=== PATIENT | female | born 1950 | race Two or more races ===

== ENCOUNTER 2025-03-01 09:45 | Day surgery (SDC) | payer OTHER, SELFPAY ==
--- NOTE | 2025-02-23 07:00 | EKG_ITS ---
[facility] Test Date: 2025-02-23 Pat Name: KELLE SAM Department: Room: - Gender: Female Generalist: JAMEY : 1950 Requested By: Maurilio Chavez Order Number: [id number] Reading MD: Maurilio Chavez Measurements Intervals [place] Rate: 56 P: 53 MD: 209 QRS: -6 QRSD: 102 T: -19 QT: 423 QTc: 408 Interpretive Statements SINUS BRADYCARDIA ST DEVIATION AND MODERATE T-WAVE ABNORMALITY, CONSIDER LATERAL ISCHEMIA [-0.1+ mV T WAVE IN I/aVL/V5/V6] Compared to ECG 12/05/2018 12:27:03 T-wave abnormality now present Possible ischemia now present Myocardial infarct finding no longer present /store/S0/[id number]/[id number]
[2025-02-23 08:28] VITALS: BMI 35.0
[2025-02-23 10:38] LABS: Basophils % (Auto) 1 % (0-2.5); Eosinophils # (Auto) 0.1 Thou/mm3 (0.0-0.5); Eosinophils % (Auto) 2 % (0-10); Hematocrit 38.9 % (36.0-46.0); Hemoglobin 12.8 g/dL (12.0-16.0); Immature Granulocytes % (Auto) 0 % (0-0); Immature Granulocytes Auto 0.01 Thou/mm3 (0.00-0.00); Lymphocytes # (Auto) 1.7 Thou/mm3 (1.0-4.8); Lymphocytes % (Auto) 41 % (10-50); Mean Corpuscular HGB Conc 32.9 g/dl (31.0-37.0); Mean Corpuscular Hemoglobin 29.4 pg (25.0-35.0); Mean Corpuscular Volume 89 fL (80-100); Monocytes # (Auto) 0.3 Thou/mm3 (0.0-0.8); Monocytes % (Auto) 7 % (0-12); Neutrophils # (Auto) 2.1 Thou/mm3 (1.8-7.7); Neutrophils % (Auto) 50 % (37-80); Nucleated Red Blood Cell % 0 /100 WBC (0); Platelet Count 229 Thou/mm3 (140-440); RDW Standard Deviation 44.5 fL (36.4-46.3); Red Blood Count 4.36 Miln/mm3 (4.00-5.20); White Blood Count 4.3 Thou/mm3 (3.6-11.0)
[2025-02-23 10:45] LABS: Partial Thromboplastin Time 28.8 Seconds (22.0-36.0); Prothrombin Time 10.7 Seconds (9.0-12.2)
[2025-02-23 11:01] LABS: Alanine Aminotransferase 15 U/L (10-49); Albumin, Serum 4.3 gm/dL (3.4-4.8); Albumin/Globulin Ratio 1.5 (1.2-2.2); Alkaline Phosphatase 72 U/L (46-116); Anion Gap 8 (7-16); Aspartate Amino Transferase 25 U/L (0-34); BUN/Creatinine Ratio 21 Ratio (12-20); Bilirubin,Total 0.5 mg/dL (0.3-1.2); Blood Urea Nitrogen 17 mg/dL (9-23); Calcium 9.5 mg/dL (8.3-10.6); Calcium (Corrected) 9.5 mg/dL (8.5-10.1); Carbon Dioxide 28.9 mMol/L (20.0-31.0); Chloride 104 mMol/L (98-107); Creatinine (Component) 0.8 mg/dL (0.6-1.3); Estimated Creatinine Clearance 58.3 mL/min (>60); Globulin 2.8 gm/dL (2.3-3.5); Glucose 107 mg/dL (74-106); Osmolality,Calculated 282 (275-295); Potassium 3.8 mMol/L (3.4-5.1); Sodium 141 mMol/L (136-145); Total Protein 7.1 gm/dL (5.7-8.2); eGFR > 60 See Note
--- NOTE | 2025-02-28 13:55 | SUR.PREOP ---
Cardiac records and history reviewed with Kenyatta.
[2025-03-01] VITALS (8 sets, daily range): BP systolic 107–131; BP diastolic 61–87; PULSE 64–74; RESP 12–18; TEMP 36.6–36.8; O2SAT 95–100; BMI 34.8
--- NOTE | 2025-03-01 14:17 | ESOP_ITS ---
Date of Procedure 03/01/25 Pre Op Diagnosis Symptomatic varicose veins left lower extremity Post Op Diagnosis Same as preop diagnosis Procedure High ligation of the greater saphenous vein left lower extremity Varicose vein excisions left lower extremity through 42 separate incisions Findings Successful flush ligation of the greater saphenous vein onto the saphenofemoral trunk All marked veins were successfully removed are disrupted Procedure Description With the patient standing in the preop area all varicose veins to be removed for marked with a sharpie pen. The patient was brought to the operating room and laryngeal mask anesthesia was established. The left lower extremity sterilely prepped and draped. A timeout was performed. The high ligation was performed first by using ultrasound to localize the saphenofemoral junction and making a transverse incision in the groin dissecting through the subcutaneous tissues with blunt and sharp dissection then used electrocautery. The saphenofemoral junction was identified and all branches were ligated with hemoclips and then the vein was ligated down to the saphenofemoral junction with a 0 silk tie and was ligated and divided distally. This wound was then closed in layers with 3-0 Vicryl in the subcutaneous tissues and a 4 Monocryl subcuticular particular skin closure followed by Dermabond dressing. Attention was then turned to the varicose veins which were removed by making a small skin thomas with a #11 blade then bluntly enlarging the incision on the scutal clamp and sequentially excising or disrupting the veins with mosquito clamps or in a hook through 42 separate incisions. After all veins had been removed or disrupted hemostasis was obtained the wound. The wound was washed then gauze and Kerlix were applied followed by an Tin wrap. Patient woke well from anesthesia was with recovery in stable condition having tolerated procedure well Anesthesia other (Laryngeal mask anesthesia) Pathology / specimen Other (Varicose veins left lower extremity) Estimated Blood Loss 100 Condition Stable Disposition PACU Surgeon Maurilio Wilson MD Surgical Staff Operation Date: 03/01/25 12:30 Case Staff ELECTRICIAN ASSISTANT: Willem Contreras RN First Assistant: Bridgett Archer
--- NOTE | 2025-03-01 14:41 | SUR.PHASEI ---
pt arrived to PACU via gurney with oral airway present, respirations even and unlabored, dressing to left lower extremity clean, dry, and intact, report from Willem DAVIS, Yany GRIFFIN, and Jb GIBBS
[2025-03-01] MEDS: fentaNYL CIT INJ 50 mCg/ML AMP 2ML IVP ×2 (15:01→15:17)
--- NOTE | 2025-03-01 15:05 | SUR.PHASEI ---
pt tolerating ice chips without difficulty swallowing or n/v
--- NOTE | 2025-03-01 16:05 | SUR.PHASEII ---
pt awake, alert, able to follow commands, breathing unlabored, dressing to left lower extremity clean, dry, and intact, discharge instructions given with sister present using telephone business information consultant Dagoberto ID#[id number] and sister verbalize understanding, pt able to dress self and ambulate with steady gait and no bleeding present, pt discharged via wheelchair with all belongings and copies of discharge paperwork.
== END 2025-03-01 16:05 | disposition home or self-care (01) ==
PROVIDERS: Anesthesiology; PCP Family Medicine; Referring Provider Surgery Vascular Surgery; Visit Provider Surgery Vascular Surgery
PROC: (CPT 37785; principal; 2025-03-01 12:15)
DX: I83.812 Varicose veins of left lower extremity with pain (principal); Z01.810 Encounter for preprocedural cardiovascular examination
CPT/HCPCS: 37700; 37766; 36415; 80053; 85025; 85610; 85730; 93005; A4217; A4649; J0131; J0690; J1100; J2405; J2704; J3010; J3490; J7040

== ENCOUNTER 2025-05-10 05:40 | Day surgery (SDC) | payer OTHER, SELFPAY ==
[2025-05-08 10:28] VITALS: BMI 34.3
[2025-05-08 13:00] LABS: Basophils % (Auto) 1 % (0-2.5); Eosinophils # (Auto) 0.1 Thou/mm3 (0.0-0.5); Eosinophils % (Auto) 1 % (0-10); Hematocrit 36.5 % (36.0-46.0); Hemoglobin 12.1 g/dL (12.0-16.0); Immature Granulocytes % (Auto) 0 % (0-0); Immature Granulocytes Auto 0.01 Thou/mm3 (0.00-0.00); Lymphocytes # (Auto) 2.1 Thou/mm3 (1.0-4.8); Lymphocytes % (Auto) 38 % (10-50); Mean Corpuscular HGB Conc 33.2 g/dl (31.0-37.0); Mean Corpuscular Hemoglobin 28.3 pg (25.0-35.0); Mean Corpuscular Volume 85 fL (80-100); Monocytes # (Auto) 0.3 Thou/mm3 (0.0-0.8); Monocytes % (Auto) 6 % (0-12); Neutrophils % (Auto) 54 % (37-80); Nucleated Red Blood Cell % 0 /100 WBC (0); Platelet Count 243 Thou/mm3 (140-440); RDW Standard Deviation 42.6 fL (36.4-46.3); Red Blood Count 4.28 Miln/mm3 (4.00-5.20); White Blood Count 5.6 Thou/mm3 (3.6-11.0)
[2025-05-08 13:05] LABS: Prothrombin Time 10.6 Seconds (9.0-12.2)
[2025-05-08 13:37] LABS: Alanine Aminotransferase 12 U/L (10-49); Albumin, Serum 4.6 gm/dL (3.4-4.8); Albumin/Globulin Ratio 1.9 (1.2-2.2); Alkaline Phosphatase 76 U/L (46-116); Anion Gap 10 (7-16); Aspartate Amino Transferase 18 U/L (0-34); BUN/Creatinine Ratio 20 Ratio (12-20); Bilirubin,Total 0.4 mg/dL (0.3-1.2); Blood Urea Nitrogen 16 mg/dL (9-23); Calcium 9.3 mg/dL (8.3-10.6); Calcium (Corrected) 9.3 mg/dL (8.5-10.1); Carbon Dioxide 29.5 mMol/L (20.0-31.0); Chloride 106 mMol/L (98-107); Creatinine (Component) 0.8 mg/dL (0.6-1.3); Estimated Creatinine Clearance 57.7 mL/min (>60); Globulin 2.4 gm/dL (2.3-3.5); Glucose 96 mg/dL (74-106); Osmolality,Calculated 289 (275-295); Potassium 3.9 mMol/L (3.4-5.1); Sodium 145 mMol/L (136-145); eGFR > 60 See Note
[2025-05-10] VITALS (10 sets, daily range): BP systolic 114–143; BP diastolic 60–82; PULSE 62–85; RESP 12–19; TEMP 36.1–37.2; O2SAT 94–100; BMI 30.2
[2025-05-10] MEDS: RINGERS LACTATED 1000 ML 1,000 ML 20 ML IV (07:32)
--- NOTE | 2025-05-10 09:15 | SUR.PHASEI ---
pt received from OR in recovery bay 5. pt asleep but responds to voice, breathing unlabored on room air. v/s stable. pt dressing to right lower extremity cdi. report received from Robel GRIFFIN and Rachel GIBBS.
--- NOTE | 2025-05-10 09:17 | PD.SUROPNT ---
Date of Procedure 05/10/25 Pre Op Diagnosis Symptomatic varicose veins right lower extremity Post Op Diagnosis Same as preop diagnosis Procedure On high ligation of the greater saphenous vein with varicose vein excisions right lower extremity through 53 separate incisions Findings All marked varicose veins were successfully removed or disrupted Successful ligation of the saphenofemoral junction Procedure Description With the patient standing in the pre op area all varicose veins to remain be removed were carefully marked with a sharpie pen. The patient was then brought to the operating room and general anesthesia was induced. The right lower extremity was sterilely prepped and draped. A timeout was performed. The high ligation was performed first by localizing the saphenofemoral junction with ultrasound and making a transverse incision in the groin and dissecting through the subcutaneous tissues with blunt and sharp dissection and the electrocautery to expose the saphenofemoral junction. All branches were ligated with hemoclips and then the vein was flushed ligated onto the common femoral vein with an 0 silk tie. The vein was then divided. Attention was then turned to the marked veins which were removed by making a small skin thomas with a #11 blade then enlarging the incision with a mosquito clamp and sequentially grasping and excising the veins. Those that cannot be removed were disrupted and the incision was packed. After all marked varicose veins were either removed or disrupted hemostasis was obtained and the leg was cleaned. The incisions were reapproximated with Steri-Strips. A sterile dressing was applied with gauze Kerlix and then an Tin wrap was applied. The patient woke well from anesthesia as much recovery and stable condition Anesthesia other (Laryngeal mask anesthesia) Pathology / specimen Other (Right lower extremity varicose veins) Estimated Blood Loss 150 Condition Stable Disposition PACU Surgeon Maurilio Wilson MD Surgical Staff Operation Date: 05/10/25 07:45 Case Staff Anesthesiologist: Gene Cazares RN First Assistant: Bridgett Archer
[2025-05-10] MEDS: fentaNYL CIT INJ 50 mCg/ML AMP 2ML 25 MCG IVP ×4 (09:25→10:19)
[2025-05-10] MEDS: ACETAMINOPHEN IVPB 1,000 MG/100 ML VIAL 250 MG IV (09:38)
[2025-05-10] MEDS: HYDROmorphone INJ 2 MG/ML VIAL 0.3 MG IVP (09:45)
--- NOTE | 2025-05-10 11:02 | SUR.PHASEII ---
pt awake and alert, breathing unlabored on room air. v/s stable. pt dressing to right lower extremity cdi. pt able to ambulate in pacu hallway and back to bed, dressing inspected after ambulation no signs of bleeding noted. pt able to ambulate to wheelchair with steady gait. d/c instructions given with sister Irma in room using pallet sorter Nikki [email or web address], all questions answered. pt d/c via wheelchair with all belongings.
== END 2025-05-10 11:02 | disposition home or self-care (01) ==
PROVIDERS: PCP Family Medicine; Referring Provider Surgery Vascular Surgery; Visit Provider Surgery Vascular Surgery
PROC: (CPT 37785; principal; 2025-05-10 07:30)
DX: I83.811 Varicose veins of right lower extremity with pain (principal)
CPT/HCPCS: 37700; 37766; 36415; 80053; 85025; 85610; 85730; A4217; A4649; J0131; J0690; J1171; J2704; J2765; J3010; J7120

== ENCOUNTER → 2025-09-04 | Outpatient (CLI) | payer OTHER, SELFPAY ==
--- NOTE | 2025-09-04 14:45 | XR_ITS ---
Examination: Lumbar spine, 5 views Technique: Lumbar spine AP, lateral, coned lateral lower lumbar spine, bilateral obliques 5 views Exam date and time: September 04, 2025, 1515 hours INDICATIONS: Low back pain beginning 2 months ago. FINDINGS: Severe osteopenia Moderate diffuse facet arthropathy. No lumbar fracture. Grade 1 anterolisthesis L5 on S1 Mild diffuse lumbar degenerative disc disease IMPRESSION: Mild diffuse lumbar degenerative disc disease
== END | disposition home or self-care (01) ==
LOC: CDIM 14:37
PROVIDERS: PCP Family Medicine; Referring Provider Family Medicine; Visit Provider Family Medicine
DX: M51.360 Other intervertebral disc degeneration, lumbar region with discogenic back pain only (principal)
CPT/HCPCS: 72110

== ENCOUNTER → 2025-09-06 | Outpatient (CLI) | payer OTHER, SELFPAY ==
--- NOTE | 2025-09-06 08:45 | XR_ITS ---
Examination: Screening digital mammography, bilateral Computer aided detection 3-D breast Tomosynthesis, bilateral Date and time of exam: 09/06/2025, 8:41 a.m. Comparisons: May 2022 through July 2024 Indications: Screening Technique: Nonmagnified MLO, CC views of the breasts to been obtained, reconstructed from 3-D Tomosynthesis images. R2 computer aided detection program utilized for evaluation of suspicious masses and/or abnormal calcifications. 3-D Tomosynthesis images obtained. Technologist: Findings: There are scattered areas of fibroglandular density. No evidence of abnormal masses or suspicious calcifications. Impression: BI-RADS category 1: Negative findings (within normal) Recommend 1 year follow-up mammogram
== END | disposition home or self-care (01) ==
LOC: CDIM 08:21
PROVIDERS: Referring Provider Family Medicine; Visit Provider Family Medicine
DX: Z12.31 Encounter for screening mammogram for malignant neoplasm of breast (principal); R92.313 Mammographic fatty tissue density, bilateral breasts
CPT/HCPCS: 77063; 77067

== ENCOUNTER → 2025-09-26 | Outpatient (CLI) | payer OTHER, SELFPAY ==
[2025-09-26 09:25] LABS: Basophils # (Auto) 0.0 Thou/mm3 (0.0-0.2); Basophils % (Auto) 1 % (0-2.5); Eosinophils # (Auto) 0.1 Thou/mm3 (0.0-0.5); Eosinophils % (Auto) 2 % (0-10); Hematocrit 36.8 % (36.0-46.0); Hemoglobin 11.9 g/dL (12.0-16.0); Immature Granulocytes Auto 0.01 Thou/mm3 (0.00-0.00); Lymphocytes # (Auto) 1.6 Thou/mm3 (1.0-4.8); Lymphocytes % (Auto) 35 % (10-50); Mean Corpuscular HGB Conc 32.3 g/dl (31.0-37.0); Mean Corpuscular Hemoglobin 27.2 pg (25.0-35.0); Mean Corpuscular Volume 84 fL (80-100); Monocytes # (Auto) 0.3 Thou/mm3 (0.0-0.8); Monocytes % (Auto) 6 % (0-12); Neutrophils # (Auto) 2.6 Thou/mm3 (1.8-7.7); Neutrophils % (Auto) 57 % (37-80); Nucleated Red Blood Cell # 0.00 Thou/mm3 (0.00-0.00); Nucleated Red Blood Cell % 0 /100 WBC (0); Platelet Count 240 Thou/mm3 (140-440); RDW Standard Deviation 47.2 fL (36.4-46.3); Red Blood Count 4.37 Miln/mm3 (4.00-5.20); White Blood Count 4.5 Thou/mm3 (3.6-11.0)
[2025-09-26 09:45] LABS: Alanine Aminotransferase 11 U/L (10-49); Albumin, Serum 4.6 gm/dL (3.4-4.8); Alkaline Phosphatase 83 U/L (46-116); Anion Gap 9 (7-16); Aspartate Amino Transferase 18 U/L (0-34); BUN/Creatinine Ratio 17 Ratio (12-20); Bilirubin,Direct 0.1 mg/dL (0.0-0.3); Bilirubin,Total 0.4 mg/dL (0.3-1.2); Blood Urea Nitrogen 12 mg/dL (9-23); Calcium 8.6 mg/dL (8.3-10.6); Carbon Dioxide 27.1 mMol/L (20.0-31.0); Cardiac Risk Estimate 2.9 RATIO (3.7-5.6); Chloride 108 mMol/L (98-107); Cholesterol 175 mg/dL (132-200); Creatinine (Component) 0.7 mg/dL (0.6-1.3); Free T4 (Free Thyroxine) 1.12 ng/dL (0.89-1.76); Glucose 98 mg/dL (74-106); HDL Cholesterol 60 mg/dL (40-60); LDL Cholesterol,Calculated 98 mg/dL (0-130); Osmolality,Calculated 286 (275-295); Potassium 4.0 mMol/L (3.4-5.1); Sodium 144 mMol/L (136-145); Thyroid Stimulating Hormone 1.45 uIU/mL (0.55-4.78); Total Protein 6.5 gm/dL (5.7-8.2); Triglycerides 83 mg/dL (30-150); eGFR > 60 See Note
== END | disposition home or self-care (01) ==
LOC: COPL 08:03
PROVIDERS: PCP Family Medicine; Referring Provider Internal Medicine Cardiovascular Disease; Visit Provider Internal Medicine Cardiovascular Disease
DX: I10 Essential (primary) hypertension (principal); E78.5 Hyperlipidemia, unspecified; E07.9 Disorder of thyroid, unspecified
CPT/HCPCS: 36415; 80048; 80061; 80076; 84439; 84443; 85025

== ENCOUNTER 2025-10-24 12:31 | Observation (INO) | payer OTHER, SELFPAY ==
[2025-10-24] VITALS (7 sets, daily range): BP systolic 104–158; BP diastolic 60–84; PULSE 63–80; RESP 18–100; TEMP 36.1–36.5; O2SAT 94–97
--- NOTE | 2025-10-24 12:41 | XR_ITS ---
Examination: CT brain head without contrast. 2-D sagittal coronal reconstructions Date and time of exam: October 24, 2025, 1251 hours INDICATIONS: Stroke alert, left eye blindness today CTDI: vol (mGy): 48.2 DLP: (mGycm): 939 Technique: Multiple CT axial sections of the brain have been obtained, 5 mm slice thickness. Contrast has not been administered. 2-D sagittal, coronal reconstructions have been obtained Low dose protocols were performed. One or more of the following dose reduction techniques were used; automated exposure control, adjustment of the mA and/or KV according to patient size, use of iterative reconstruction technique. Findings: No significant ventricular enlargement. Intra-axial or extra-axial hemorrhage density is not seen. No mass effect or midline shift Basal cisterns are not remarkable. Fourth ventricle is midline. Cranial vault intact. Impression: Negative for acute hemorrhage, mass effect or midline shift
--- NOTE | 2025-10-24 12:41 | XR_ITS ---
Examination: CTA carotids with intravenous contrast CTA brain, head with intravenous contrast. 2-D sagittal, coronal reconstructions. 3-D reconstructions. Exam date and time: October 24, 2025, 1308 hours INDICATIONS: Stroke alert, onset focal neurologic deficits including left eye blindness today CTDI: vol (mGy) 37.7 DLP: (mGycm) 478 Technique: Multiple CTA axial brain, head carotid images post intravenous contrast injection 75 cc, Isovue-370. 2-D sagittal, coronal reconstructions. 3-D reconstructions, 3-D post processing including vascular maximum intensity projection images. Low dose protocols were performed. One or more of the following dose reduction techniques were used; automated exposure control, adjustment of the mA and/or KV according to patient size, use of iterative reconstruction technique. Findings: No significant common carotid carotid bifurcation or internal carotid artery stenoses Codominant vertebral arteries with no critical vertebral artery stenoses in the neck Intracranial vertebral arteries basilar artery posterior cerebral branches fill with no large vessel occlusions Petrous juxtasellar supraclinoid portions internal carotid arteries are patent M1 segment middle cerebral arteries trifurcation middle cerebral artery vessels bilaterally intact as well as anterior cerebral arteries IMPRESSION: No significant neck arterial stenoses No cerebral large vessel arterial occlusions or thrombus
--- NOTE | 2025-10-24 12:41 | XR_ITS ---
EXAMINATION: AP chest single view TECHNIQUE: AP portable upright chest single view Date and time: October 24, 2025, 1325 hours, comparison December 02, 2018 INDICATIONS: Stroke alert, onset focal neurologic deficit today FINDINGS: Normal heart size No aspiration pneumonia Severe osteopenia IMPRESSION: No aspiration pneumonia
--- NOTE | 2025-10-24 12:41 | EKG_ITS ---
[facility] Test Date: 2025-10-24 Pat Name: KELLE SAM Department: Room: - Gender: Female Public Relations Officer: : 1950 Requested By: Brooklynn Sharpe Order Number: [id number] Reading MD: Brooklynn Sharpe Measurements Intervals [place] Rate: 64 P: 58 RI: 204 QRS: -32 QRSD: 114 T: 7 QT: 418 QTc: 433 Interpretive Statements SINUS RHYTHM LEFT AXIS DEVIATION [QRS AXIS < -30] LOW QRS VOLTAGE IN PRECORDIAL LEADS [QRS DEFLECTION < 1.0 mV IN CHEST LEADS] POSSIBLE ANTERIOR MYOCARDIAL INFARCTION , OF INDETERMINATE AGE [30 ms Q WAVE IN V3/V4, OR R < 0.2 mV IN V4] Compared to ECG 02/23/2025 09:44:31 Left-axis deviation now present Low QRS voltage now present Myocardial infarct finding now present Sinus bradycardia no longer present T-wave abnormality no longer present Possible ischemia no longer present /store/S0/[id number]/[id number].pdf
[2025-10-24 13:11] LABS: Basophils # (Auto) 0.1 Thou/mm3 (0.0-0.2); Basophils % (Auto) 1 % (0-2.5); Eosinophils # (Auto) 0.1 Thou/mm3 (0.0-0.5); Eosinophils % (Auto) 2 % (0-10); Hematocrit 38.1 % (36.0-46.0); Hemoglobin 12.3 g/dL (12.0-16.0); Immature Granulocytes Auto 0.02 Thou/mm3 (0.00-0.00); Lymphocytes # (Auto) 2.3 Thou/mm3 (1.0-4.8); Lymphocytes % (Auto) 39 % (10-50); Mean Corpuscular HGB Conc 32.3 g/dl (31.0-37.0); Mean Corpuscular Hemoglobin 27.7 pg (25.0-35.0); Mean Corpuscular Volume 86 fL (80-100); Monocytes # (Auto) 0.3 Thou/mm3 (0.0-0.8); Monocytes % (Auto) 5 % (0-12); Neutrophils # (Auto) 3.2 Thou/mm3 (1.8-7.7); Neutrophils % (Auto) 53 % (37-80); Nucleated Red Blood Cell # 0.00 Thou/mm3 (0.00-0.00); Nucleated Red Blood Cell % 0 /100 WBC (0); Platelet Count 223 Thou/mm3 (140-440); RDW Standard Deviation 47.1 fL (36.4-46.3); Red Blood Count 4.44 Miln/mm3 (4.00-5.20); White Blood Count 6.1 Thou/mm3 (3.6-11.0)
[2025-10-24 13:20] LABS: INR 1.0 (0.9-1.3); Partial Thromboplastin Time 30.0 Seconds (22.0-36.0); Prothrombin Time 10.2 Seconds (9.0-12.2)
[2025-10-24 13:23] LABS: B-Type Natriuretic Peptide 24 pg/mL (0-100)
[2025-10-24 13:29] LABS: Sed Rate (ESR) 15 mm/hr (0-30)
--- NOTE | 2025-10-24 13:30 | PD.NEUROCONS ---
History of Present Illness Consult Narrative cc:: cc: Meds Home Medications and Allergies Home Medications ?Medication ?Instructions ?Recorded ?Confirmed ?Type alendronate 70 mg tablet (Fosamax) 70 mg PO QWEEK #0 tabs 12/09/16 05/08/25 History omeprazole 20 mg capsule,delayed 20 mg PO QDAY ##0 05/28/17 05/08/25 History release amlodipine 10 mg tablet 10 mg PO QDAY 11/29/18 05/10/25 History furosemide 20 mg tablet 20 mg PO DAILY 02/23/25 05/08/25 History ibuprofen 800 mg tablet (IBU) 800 mg PO Q8H PRN pain 02/23/25 05/08/25 History oxybutynin chloride 5 mg tablet 5 mg PO DAILY 02/23/25 05/08/25 History apixaban 5 mg tablet (Eliquis) 5 mg PO BID 05/08/25 05/08/25 History Held on 05/10/25. Instructions: Resume on 05/14/25. calcium 600 mg (as 1 tab PO QDAY 05/08/25 05/08/25 History carbonate)-vitamin D3 5 mcg (200 unit) tablet omega 8-zre-rth-fish oil 1,200 mg 1 cap PO QDAY 05/08/25 05/08/25 History (144 mg-216 mg) capsule (Fish Oil) Allergies Allergy/AdvReac Type Severity Reaction Status Date / Time No Known Allergies Allergy Verified 10/24/25 12:34 Exam - Neurology Vital Signs Temp Pulse Resp BP Pulse Ox O2 Del Method 97.5 F 70 18 134/71 H 97 Room Air 10/24/25 12:33 10/24/25 12:56 10/24/25 12:56 10/24/25 12:56 10/24/25 12:56 10/24/25 12:56 Results Labs 10/24/25 12:56 Labs: Short CBC 10/24/25 Range/Units 12:56 WBC 6.1 (3.6-11.0) Thou/mm3 Hgb 12.3 (12.0-16.0) g/dL Hct 38.1 (36.0-46.0) % Plt Count 223 (140-440) Thou/mm3 Impressions Impression: [facility] Patient Name:???Ami SAM Date of :???1950 Identification Number:??? Date of Service:???10/24/2025 12:42:31 Diagnosis:?H53.122 - Transient visual loss, left eye. Impression: ?PT was eating this morning when she suddenly with transient left visual loss. NIHSS was 0. Pt was not a candidate for iv-thrombolytics as pt's symptom's had resolved. CTA head and neck showed no obvious large vessel occlusion but will?follow-up with the final results.? ? ?Recommend admission and work-up for amaurosis fugax including MRI brain without contrast, TTE, telemetry lipid panel, hemoglobin AIC. Will also order an ESR and CRP to rule out temporal arteritis. ? ?Can give ASA 325 mg x 1 in the ED once the pt passes a dysphagia screen followed by ASA 81 mg daily Our recommendations are outlined below. Recommendations: ? Stroke/Telemetry Floor ? Neuro Checks (Q4) ? Bedside Swallow Eval ? DVT Prophylaxis ? IV Fluids, Normal Saline ? Head of Bed 30 Degrees ? Euglycemia and Avoid Hyperthermia (PRN Acetaminophen) ?MRI brain without contrast ?TTE ?Lipid panel ?Hemoglobin AIC?ESR ?CRP Sign Out: ? Discussed with Emergency Department Provider Advanced Imaging: CTA Head and Neck Completed. LVO:No Patient is not a candidate for GAEL Metrics: Last Known Well: 10/24/2025 11:00:00 Arrival Time: 10/24/2025 12:31:00 Activation Time: 10/24/2025 12:42:30 Initial Response Time: 10/24/2025 12:43:37Symptoms: Left eye vision loss. . Initial patient interaction: 10/24/2025 12:53:50 NIHSS Assessment Completed: 10/24/2025 13:01:20Patient is not a candidate for Thrombolytic. Thrombolytic Medical Decision: 10/24/2025 13:01:22Patient was not deemed candidate for Thrombolytic because of following reasons: Resolved symptoms . CT Head: I personally reviewed all the CT images that were available to me and it showed: no acute ischemic changes, no ICH Primary Provider Notified of Diagnostic Impression and Management Plan on: 10/24/2025 13:20:32 History of Present Illness:Patient is a 75 year old Female. Patient was brought by private transportation with symptoms of Left eye vision loss. . PT was eating this morning when she suddenly the vision on the left eye went black. She reports that her vision started to come she was initially only able to see the upper part of her vision, but after a couple of minutes her vision was back to normal. She had no headache, numbness, weakness, difficulty speaking. Past Medical History: ?Hypertension ?Hyperlipidemia Medications: No Anticoagulant use? No Antiplatelet use Reviewed EMR for current medications Allergies:? NKDA Social History: Smoking: No Family History: There is no family history of premature cerebrovascular disease pertinent to this consultation ROS : 14 Points Review of Systems was performed and was negative except mentioned in HPI. Past Surgical History: There Is No Surgical History Contributory To Today?s Visit Examination: BP(134/71),?Pulse(70), 1A: Level of Consciousness - Alert; keenly responsive?+ 0 1B: Ask Month and Age - Both Questions Right?+ 0 1C: Blink Eyes & Squeeze Hands - Performs Both Tasks?+ 0 2: Test Horizontal Extraocular Movements - Normal?+ 0 3: Test Visual Tovar - No Visual Loss?+ 0 4: Test Facial Palsy (Use Grimace if Obtunded) - Normal symmetry?+ 0 5A: Test Left Arm Motor Drift - No Drift for 10 Seconds?+ 0 5B: Test Right Arm Motor Drift - No Drift for 10 Seconds?+ 0 6A: Test Left Leg Motor Drift - No Drift for 5 Seconds?+ 0 6B: Test Right Leg Motor Drift - No Drift for 5 Seconds?+ 0 7: Test Limb Ataxia (FNF/Heel-Walden) - No Ataxia?+ 0 8: Test Sensation - Normal; No sensory loss?+ 0 9: Test Language/Aphasia - Normal; No aphasia?+ 0 10: Test Dysarthria - Normal?+ 0 11: Test Extinction/Inattention - No abnormality?+ 0 NIHSS Score:?0 Pre-Morbid Modified [place] Scale: 0 Points = No symptoms at all Spoke with :?Dr. Kaitlynn Wright This consult was conducted in real time using interactive audio and video technology. Patient was informed of the technology being used for this visit and agreed to proceed. Patient located in hospital and provider located at home/office setting. Patient is being evaluated for possible acute neurologic impairment and high probability of imminent or life-threatening deterioration. I spent total of 45 minutes providing care to this patient, including time for face to face visit via telemedicine, review of medical records, imaging studies and discussion of findings with providers, the patient and/or family. Dr Marina Kearney [facility] For Inpatient follow-up with [facility] physician please call [facility] at . As we are not an outpatient service for any post hospital discharge needs please contact the hospital for assistance. If you have any questions for the [facility] physicians or need to reconsult for clinical or diagnostic changes please contact us via [facility] at . Non-radiologist review of imaging performed to assist with emergent clinical decision-making. Remote physician workstations do not possess the same resolution, calibration, or diagnostic capabilities as hospital-based radiology reading stations, and formal radiologist read is necessary. Signature :Kandy Kearney
[2025-10-24 13:51] LABS: Collection Type, Urine Clean Catch
[2025-10-24 13:52] LABS: Alanine Aminotransferase 21 U/L (10-49); Albumin, Serum 4.7 gm/dL (3.4-4.8); Albumin/Globulin Ratio 1.7 (1.2-2.2); Alkaline Phosphatase 91 U/L (46-116); Anion Gap 9 (7-16); Aspartate Amino Transferase 23 U/L (0-34); BUN/Creatinine Ratio 21 Ratio (12-20); Bilirubin,Total 0.4 mg/dL (0.3-1.2); Blood Urea Nitrogen 17 mg/dL (9-23); C-Reactive Protein < 0.5 mg/dL (0.0-0.9); Calcium 8.7 mg/dL (8.3-10.6); Calcium (Corrected) 8.7 mg/dL (8.5-10.1); Carbon Dioxide 26.3 mMol/L (20.0-31.0); Chloride 107 mMol/L (98-107); Creatinine (Component) 0.8 mg/dL (0.6-1.3); Globulin 2.7 gm/dL (2.3-3.5); Glucose 111 mg/dL (74-106); Magnesium 1.7 mg/dL (1.6-2.6); Osmolality,Calculated 285 (275-295); Potassium 3.4 mMol/L (3.4-5.1); Sodium 142 mMol/L (136-145); Total Protein 7.4 gm/dL (5.7-8.2); Troponin I 0.020 ng/mL (0.0-0.045); eGFR > 60 See Note
[2025-10-24 14:01] LABS: Bacteria,Urine Rare; Bilirubin,Urine Negative (Negative); Blood,Urine Negative (Negative); Clarity,Urine Clear (Clear/Hazy); Color,Urine Colorless (Lt Yel-Yel); Culture Indicated,Urine Not Indicated; Glucose, Urine Negative (Negative); Hyaline Casts,Urine < 1 /hpf (0-1); Ketones,Urine Negative (Negative); Leukocyte Esterase,Urine Negative (Negative); Nitrite,Urine Negative (Negative); PH,Urine 6.5 (5.0-7.0); Protein,Urine Negative (Neg - Trace); RBC,Urine 1 /hpf (0-3); Specific Gravity,Urine 1.009 (1.001-1.035); Squamous Epithelial Cell,Urine 1 /hpf (0-5); Urobilinogen,Urine Negative mg/dL (0.0-1.0); WBC,Urine 2 /hpf (0-5)
[2025-10-24 14:07] LABS: Amphetamine/Methamp Scrn,U Negative (Negative); Barbiturate Screen,Urine Negative (Negative); Benzodiazepines Screen,Urine Negative (Negative); Benzoylecgonine Screen, Ur Negative (Negative); Fentanyl Screen,Urine Negative (Negative); Opiate Screen,Urine Negative (Negative); THC Screen,Urine Negative (Negative)
--- NOTE | 2025-10-24 14:11 | ECHO_ITS ---
Patient Info Name: Ami Bailey Age: 75 years : 1950 Gender: Female Ht: 147 cm Wt: 68 kg BSA: 1.69 m2 BP: 135 / 71 mmHg HR: 75 bpm Exam Date: 10/24/2025 3:07 PM Admit Date: 10/24/2025 Site: [facility] Patient Status: I Technical Quality: Fair Exam Type: CA echo doppler complete Parts Chaser: Robyn Vega Ordering Physician: Jc Mcrae Study Info Indications Stroke - Contrast/Agitated Saline Contrast/Ag. Saline: Agitated Saline Amount: --- ml Primary Location: [facility] Left Ventricular Outflow Tract Name Value Normal LVOT 2D LVOT Diameter 1.9 cm LVOT Doppler LVOT Peak Velocity 99 cm/s LVOT Mean Gradient 2 mmHg LVOT VTI 19 cm LVOT VTI/AV VTI Ratio 0.7 LVOT Stroke Volume 54 ml Pulmonic Valve Name Value Normal PV Doppler PV Peak Velocity 64 cm/s Mitral Valve Name Value Normal MV Doppler MV Decel Webster 495 cm/s2 MV PHT 43 ms MV Area (PHT) 5.1 cm2 4.0-5.0 MV Diastolic Function MV E Peak Velocity 73 cm/s MV A Peak Velocity 100 cm/s MV E/A 0.7 MV Annular TDI MV Septal e' Velocity 6.4 cm/s MV E/e' (Septal) 11.4 MV Lateral e' Velocity 10.9 cm/s MV E/e' (Lateral) 6.7 MV e' Average 8.66 cm/s MV E/e' (Average) 9.1 Tricuspid Valve Name Value Normal TV Regurgitation Doppler TR Peak Velocity 161 cm/s Estimated PAP/RSVP RA Pressure 3 mmHg <=5 PA Systolic Pressure 13 mmHg <36 RV Systolic Pressure 13 mmHg <36 TV Annular TDI TV Lateral Margaret s' Velocity 12.3 cm/s >=9.5 Aortic Valve Name Value Normal AV 2D/MM AV Cusp Sep (MM) 1.4 cm AV Doppler AV Peak Velocity 128 cm/s AV Mean Gradient 3 mmHg AV VTI 26 cm AV Area (Cont Eq VTI) 2.0 cm2 >=3.0 AV Area (Cont Eq Samuel) 2.2 cm2 AV DI (Samuel) 0.77 AV Regurgitation 2D LVOT Area 2.8 cm2 Ventricles Name Value Normal LV Dimensions 2D/MM IVS Diastolic Thickness (2D) 0.9 cm 0.6-0.9 LVID Diastole (2D) 5.4 cm 3.8-5.2 LVIW Diastolic Thickness (2D) 1.2 cm 0.6-0.9 LVID Systole (2D) 4.1 cm 2.2-3.5 LVOT Diameter 1.9 cm LV Mass (2D Cubed) 220.59 g 67.00-162.00 LV Mass Index (2D Cubed) 130 g/m2 43-95 Relative Wall Thickness (2D) 0.44 <=0.42 IVS/LVIW Diastolic Thickness (2D) 0.75 0.00-1.50 LV Fractional Shortening/Ejection Fraction 2D/MM LV Fractional Shortening (2D) 24 % 27-45 LV EF (2D Teichholz) 47 % RV Dimensions 2D/MM TV Lateral Margaret s' Velocity 12.3 cm/s >=9.5 Atria Name Value Normal LA Dimensions LA Volume (4C A-L) 63 ml LA Volume (BP A-L) 53 ml Left Ventricle Left ventricular chamber dimension is normal. Left ventricular systolic function is normal with visually estimated ejection fraction of 60-65%. There is concentric remodeling noted in the left ventricle. Left ventricular segmental wall motion is normal. There is grade I diastolic dysfunction in the left ventricle. Right Ventricle Right ventricular chamber dimension is normal. Right ventricular systolic function is normal. Left Atrium Left atrial chamber dimension is normal. Right Atrium Right atrial chamber dimension is normal. Aortic Valve The aortic valve is trileaflet. There is no aortic valve sclerosis. There is no aortic valve stenosis with a peak velocity of 128 cm/s, mean gradient of 3 mmHg, and aortic valve area of 2.0 cm2. There is no aortic valve regurgitation. Pulmonic Valve The pulmonic valve is normal. There is no pulmonic valve stenosis. There is no pulmonic regurgitation. Mitral Valve The mitral valve has normal leaflets. There is no mitral valve stenosis. There is mild mitral valve regurgitation. Tricuspid Valve The tricuspid valve leaflets are normal. There is no tricuspid valve stenosis. There is trace tricuspid valve regurgitation. No pulmonary hypertension, estimated pulmonary arterial systolic pressure is 13 mmHg and systemic blood pressure of 135 mmHg in systole. Pericardium/Pleural The pericardium appears normal. There is no pericardial effusion. No pleural effusion visualized. Inferior Vena Cava Normal inferior vena cava with >50% collapse upon inspiration consistent with normal right atrial pressure, 3 mmHg. Aorta The aortic measurements are indexed to age and body surface area. The aortic root at the sinus of Valsalva is not well visualized. The prox ascending aorta is not well visualized. Summary 1. Left ventricle size is normal and systolic function is normal. Estimated ejection fraction is 60-65%. There is grade I diastolic dysfunction. 2. Right ventricle chamber size is normal and systolic function is normal. Estimated RVSP is 13 mmHg. 3. There is mild mitral valve regurgitation. 4. There is trace tricuspid valve regurgitation. 5. Normal IVC with estimated RA pressure 3 mmHg. 6. Positive bubble study. Report Signatures Finalized by Marsha Jackson on 10/25/2025 08:44 AM
--- NOTE | 2025-10-24 15:22 | PD.EDEYE ---
ED Eye Problem RME/HPI General Chief complaint: Eye Problems Stated complaint: CHANGED VISION L) EYE, FEELS STRANGELKW 11:30 Time Seen by Provider: 10/24/25 13:34 Arrival date/time: 10/24/25 12:31 RME / HPI RME / HPI Narrative: 75 year old female with history of hypertension and hyperlipidemia presents to the ED for evaluation of sudden left eye vision loss occurring ~ 1 hour [employer]. States she was at her usual state of health when she noticed the vision in her left eye was blurred and suddenly became dark. States after several minutes the vision began to come back though could only she the bottom half. In the ED states the vision has returned to normal. No other associated symptoms reported. Denies any headache or eye pain. Related Data Home Medications ?Medication ?Instructions ?Recorded ?Confirmed alendronate 70 mg tablet (Fosamax) 70 mg PO QWEEK #0 tabs 12/09/16 10/24/25 omeprazole 20 mg capsule,delayed 20 mg PO QDAY ##0 05/28/17 10/24/25 release amlodipine 10 mg tablet 10 mg PO QDAY 11/29/18 10/24/25 furosemide 20 mg tablet 20 mg PO DAILY 02/23/25 10/24/25 ibuprofen 800 mg tablet (IBU) 800 mg PO Q8H PRN pain 02/23/25 10/24/25 oxybutynin chloride 5 mg tablet 5 mg PO Q8H PRN bladder spasms 02/23/25 10/24/25 apixaban 5 mg tablet (Eliquis) 5 mg PO BID 05/08/25 05/08/25 Held on 05/10/25. Instructions: Resume on 05/14/25. calcium 600 mg (as 1 tab PO QDAY 05/08/25 10/24/25 carbonate)-vitamin D3 5 mcg (200 unit) tablet omega 4-hlz-moa-fish oil 1,200 mg 1 cap PO QDAY 05/08/25 10/24/25 (144 mg-216 mg) capsule (Fish Oil) estradiol 0.01% (0.1 mg/gram) applic 10/24/25 vaginal cream nitroglycerin 0.4 mg sublingual mg buccal 10/24/25 tablet Previous Rx's ?Medication ?Instructions ?Recorded hydrocodone 5 mg-acetaminophen 325 1 tab PO QID PRN pain #30 tabs 12/05/ mg tablet ([place]) Allergies Allergy/AdvReac Type Severity Reaction Status Date / Time No Known Allergies Allergy Verified 10/24/25 12:34 Review of Systems Review of Systems Systems Reviewed: All systems reviewed, normal except as documented Past Medical History Past Medical History NEUROLOGIC: Positive Migraine CARDIAC: Positive Cardiac Disorders, Valvular Heart Disease (mitral reg), Edema and Hypertension RESPIRATORY: Positive Sleep Apnea GASTROINTESTINAL: Positive Gastrointestinal Disorders, Gall Bladder Disease, Esophageal Varices, Ulcer and Gastroesophageal Reflux Disease REPRODUCTIVE: Positive Previous Pregnancies MUSCULOSKELETAL: Positive Musculoskeletal Disorders, Arthritis, Osteoporosis and Degenerative Disk Disease ENT: Positive Cataracts (BILATERAL) ENDOCRINE: Positive Endocrine Disorders and Systemic Lupus Erythematosus OTHER HISTORY: Positive Hospitalization (surgery), Chicken Pox, Measles and Mumps Family History FAMILY HISTORY: Positive Family Respiratory Disorders (FATHER (TB)), Family Cardiac Disorders (MOTHER (CT)), Family Cancer (BROTHER COLON) and Family Surgery (SISTER HYSTERECTOMY) Surgical History SURGICAL: Positive Abdominal Surgery, Arthroscopy (Left meniscectomy) and Section (X5) Social History SMOKING STATUS: Never smoker ED Exam Narrative Physical exam: GENERAL APPEARANCE: alert and oriented x 4, well-developed, well-nourished, no acute distress HEENT: Normocephalic, atraumatic; pupils equal, round, reactive to light; EOMI; mucous membranes pink, moist; oropharynx clear NECK: Supple LUNGS: CTABL; no wheezes, no rales, no rhonchi HEART: Regular rate, regular rhythm; normal S1, S2; no murmurs ABDOMEN: non distended; normal BS; soft, no tenderness, no guarding, no rebound; no masses, no organomegaly, no hernia BACK: no CVA tenderness EXTREMITIES: atraumatic; no edema NEUROLOGIC: awake; alert and oriented x4; cranial nerves II-XII grossly intact; no focal sensory or motor deficits PSYCHIATRIC: appropriate mood and affect SKIN: warm, dry, normal color; no rashes Course Quality Measures none Orders Category Date Time Status Admit to Inpatient Status Routine Admission 10/24/25 14:11 Active Patient Condition Routine Admission 10/24/25 14:11 Ordered Aspiration precautions NOW Care 10/24/25 14:11 Active Bedside Blood Glucose NOW Care 10/24/25 12:41 Active Commercial Subcontractor NOW Care 10/24/25 12:41 Active Continuous Pulse Oximetry NOW Care 10/24/25 12:41 Completed EKG (ED ONLY) *Do not use* NOW Care 10/24/25 12:41 Completed Head of Bed Elevation NOW Care 10/24/25 14:11 Active In and Out Catheter NEEDED Care 10/24/25 12:41 Active Insert IV NOW Care 10/24/25 12:41 Active Miscellaneous Nursing Order NOW Care 10/24/25 14:11 Active Miscellaneous Nursing Order NOW Care 10/24/25 14:11 Active NIH Stroke Scale now Care 10/24/25 12:41 Active NPO NOW Care 10/24/25 12:41 Active NPO NOW Care 10/24/25 14:11 Active Neuro Check Q4H Care 10/24/25 14:11 Active Notify provider NEEDED Care 10/24/25 14:11 Active Nurse Swallow Screen x1 Care 10/24/25 12:41 Active Obtain weight X1 Care 10/24/25 14:11 Active Vital Signs, Non-Routine Daily Care 10/25/25 09:00 Ordered Consult to Neurology / Tele-Neurology Routine Cons 10/24/25 12:41 Active Consult to Neurology / Tele-Neurology Routine Cons 10/24/25 14:11 Active PT [Referral Physical Therapy] Routine Cons 10/24/25 14:11 Active Referral Speech Therapy Routine Cons 10/24/25 14:11 Active Diet NPO (NOW) Diet 10/24/25 14:11 Active CA echo doppler complete Stat Exams 10/24/25 14:[address] angio stroke protocol Stat Exams 10/24/25 12:[address] stroke protocol Stat Exams 10/24/25 12:41 Completed EKG (ED Only) Stat Exams 10/24/25 12:41 Draft MR stroke protocol brain wwo with MRA head and neck Exams 10/24/25 14:11 Ordered Stat XR chest 1V portable Stat Exams 10/24/25 12:41 Completed B-Type Natriuretic Peptide Stat Lab 10/24/25 12:56 Completed C-Reactive Protein Stat Lab 10/24/25 12:56 Completed CBC AM DRAW Lab 10/25/25 05:00 Ordered CBC AM DRAW Lab 10/26/25 05:00 Ordered CBC AM DRAW Lab 10/27/25 05:00 Ordered CBC Stat Lab 10/24/25 12:56 Completed Comprehensive Metabolic Panel AM DRAW Lab 10/25/25 05:00 Ordered Comprehensive Metabolic Panel AM DRAW Lab 10/26/25 05:00 Ordered Comprehensive Metabolic Panel AM DRAW Lab 10/27/25 05:00 Ordered Comprehensive Metabolic Panel Stat Lab 10/24/25 12:56 Completed Drug Screen,Urine Stat Lab 10/24/25 13:26 Completed Glycohemoglobin w (eAG) AM DRAW Lab 10/25/25 05:00 Ordered Lipid Panel AM DRAW Lab 10/25/25 05:00 Ordered Magnesium AM DRAW Lab 10/25/25 05:00 Ordered Magnesium AM DRAW Lab 10/26/25 05:00 Ordered Magnesium AM DRAW Lab 10/27/25 05:00 Ordered Magnesium Stat Lab 10/24/25 12:56 Completed Partial Thromboplastin Time Stat Lab 10/24/25 12:56 Completed Phosphorous AM DRAW Lab 10/25/25 05:00 Ordered Phosphorous AM DRAW Lab 10/26/25 05:00 Ordered Phosphorous AM DRAW Lab 10/27/25 05:00 Ordered Prothrombin Time with INR AM DRAW Lab 10/25/25 05:00 Ordered Prothrombin Time with INR Stat Lab 10/24/25 12:56 Completed Sed Rate (ESR) Stat Lab 10/24/25 12:56 Completed Thyroid Stimulating Hormone AM DRAW Lab 10/25/25 05:00 Ordered Troponin I Stat Lab 10/24/25 12:56 Completed Urinalysis, C/S if Indicated Stat Lab 10/24/25 13:28 Completed Acetaminophen Tab [Tylenol Tab] Med 10/24/25 14:10 Active 650 mg PO Q6H PRN Enoxaparin [Lovenox] Med 10/25/25 09:00 Active 40 mg SC QDAY Labetalol* IV [Trandate* IV] Med 10/24/25 14:20 Discontinued 10 mg IVP PRN PRN Labetalol* IV [Trandate* IV] Med 10/24/25 16:00 Active 10 mg IVP Q2HR PRN Ondansetron Inj [Zofran Inj] Med 10/24/25 14:10 Active 4 mg IVP Q6H PRN Pantoprazole [Protonix] Med 10/25/25 09:00 Active 40 mg PO QDAY Senna [Senokot] Med 10/24/25 14:10 Active 1 tab PO QDAY PRN oxyCODONE/APAP 5/325 [Percocet 5/325] Med 10/24/25 14:10 Active 1 tab PO Q6H PRN Code Status Routine Oth 10/24/25 14:20 Ordered Oxygen Delivery DAILY RT 10/24/25 14:11 Active Oxygen Delivery NOW RT 10/24/25 12:41 Active Vital Signs Vital signs: Vital Signs Temperature 97.5 F 10/24/25 12:33 Pulse Rate 72 10/24/25 12:33 Respiratory Rate 20 10/24/25 12:33 Blood Pressure 158/84 H 10/24/25 12:33 Pulse Oximetry (%) 95 10/24/25 12:33 Oxygen Delivery Method Room Air 10/24/25 12:33 Pulse ox is 95% on room air which is adequate. Eye MDM Narrative MDM Narrative:: ISherry, am scribing for and in the presence of Dr. Ramos. 1328p: I spoke with teleneurologist Dr. Kearney. States patient is not a TNK candidate. Recommends admission for further work up. 1350p: I spoke with hospitalist team for admission. Discussed patients PMHx, HPI, ED course, exam findings, labs, and radiology results. The hospitalist agree to accept the patient for admission. Patient data External records reviewed:: [facility] previous records Clinical information provided by:: patient Social determinants that could affect healthcare access:: none Patient has the following chronic illnesses:: HTN, HLD How is presenting disease/condition affected by chronic disease/condition?: exacerbated by Evaluation data The following diagnostics were reviewed and interpreted by me:: lab results, radiology exam(s) and EKG tracing(s) (EKG @ 13:27p, normal sinus rhythm, rate 64, left axis deviation, no STEMI. ) Lab and/or radiology exams considered but not ordered:: None Interpretation Summary: Ordering Physician: Brooklynn Ramos MD Date of Service: 10/24/25 Procedure(s): XR chest 1V portable Accession Number(s): [id number] cc: Sukh Butler MD; Brooklynn Ramos MD~ EXAMINATION: AP chest single view TECHNIQUE: AP portable upright chest single view Date and time: October 24, 2025, 1325 hours, comparison December 02, 2018 INDICATIONS: Stroke alert, onset focal neurologic deficit today FINDINGS: Normal heart size No aspiration pneumonia Severe osteopenia IMPRESSION: No aspiration pneumonia Dictated By: Sukh Butler MD Signed By: <Electronically signed by Sukh Butler MD in [place]> 10/24/25 1354 Ordering Physician: Brooklynn Ramos MD Date of Service: 10/24/25 Procedure(s): CT stroke protocol Accession Number(s): [id number] cc: Sukh Butler MD; Brooklynn Ramos MD~ Examination: CT brain head without contrast. 2-D sagittal coronal reconstructions Date and time of exam: October 24, 2025, 125 hours INDICATIONS: Stroke alert, left eye blindness today CTDI: vol (mGy): 48.2 DLP: (mGycm): 939 Technique: Multiple CT axial sections of the brain have been obtained, 5 mm slice thickness. Contrast has not been administered. 2-D sagittal, coronal reconstructions have been obtained Low dose protocols were performed. One or more of the following dose reduction techniques were used; automated exposure control, adjustment of the mA and/or KV according to patient size, use of iterative reconstruction technique. Findings: No significant ventricular enlargement. Intra-axial or extra-axial hemorrhage density is not seen. No mass effect or midline shift Basal cisterns are not remarkable. Fourth ventricle is midline. Cranial vault intact. Impression: Negative for acute hemorrhage, mass effect or midline shift Dictated By: Sukh Butler MD Signed By: <Electronically signed by Sukh Butler MD in [place]> 10/24/25 1259 Ordering Physician: Brooklynn Ramos MD Date of Service: 10/24/25 Procedure(s): CT angio stroke protocol Accession Number(s): [id number] cc: Sukh Butler MD; Brooklynn Ramos MD~ Examination: CTA carotids with intravenous contrast CTA brain, head with intravenous contrast. 2-D sagittal, coronal reconstructions. 3-D reconstructions. Exam date and time: October 24, 2025, 1308 hours INDICATIONS: Stroke alert, onset focal neurologic deficits including left eye blindness today CTDI: vol (mGy) 37.7 DLP: (mGycm) 478 Technique: Multiple CTA axial brain, head carotid images post intravenous contrast injection 75 cc, [id number]. 2-D sagittal, coronal reconstructions. 3-D reconstructions, 3-D post processing including vascular maximum intensity projection images. Low dose protocols were performed. One or more of the following dose reduction techniques were used; automated exposure control, adjustment of the mA and/or KV according to patient size, use of iterative reconstruction technique. Findings: No significant common carotid carotid bifurcation or internal carotid artery stenoses Codominant vertebral arteries with no critical vertebral artery stenoses in the neck Intracranial vertebral arteries basilar artery posterior cerebral branches fill with no large vessel occlusions Petrous juxtasellar supraclinoid portions internal carotid arteries are patent M1 segment middle cerebral arteries trifurcation middle cerebral artery vessels bilaterally intact as well as anterior cerebral arteries IMPRESSION: No significant neck arterial stenoses No cerebral large vessel arterial occlusions or thrombus Dictated By: Sukh Butler MD Signed By: <Electronically signed by Sukh Butler MD in [place]> 10/24/25 1338 Medications / Prescriptions Medications or Prescriptions considered but not ordered:: None Medication administrations:: Medication Administration History Acetaminophen (Acetaminophen 325 Mg Tablet) 650 mg PO Q6H PRN PRN Reason: Fever >100.4 or pain 1-5 Stop: 11/23/25 14:09 Enoxaparin Sodium (Enoxaparin Sod Inj 40 Mg/0.4 Ml Syringe) 40 mg SC QDAY CHLOE Stop: 11/08/25 08:59 Labetalol HCl (Labetalol Inj 5 Mg/Ml Vial 4 Ml) 10 mg IVP Q2HR PRN PRN Reason: sbp>220 or dbp > 110 Stop: 11/23/25 15:59 Ondansetron HCl (Ondansetron Inj 2 Mg/Ml Inj 2 Ml) 4 mg IVP Q6H PRN; Protocol PRN Reason: NAUSEA OR VOMITING Stop: 11/23/25 14:09 Oxybutynin Chloride (Oxybutynin Chlor 5 Mg Tablet) 5 mg PO TID PRN PRN Reason: urinary urgency Stop: 11/23/25 21:59 Oxycodone/Acetaminophen (Oxycodone/Apap 5/325 Tablet) 1 tab PO Q6H PRN PRN Reason: Pain Scale 6-10 Stop: 10/29/25 14:09 Pantoprazole Sodium (Pantoprazole 40 Mg Tablet) 40 mg PO QDAY CHLOE Stop: 11/24/25 08:59 Sennosides (Senna Tablet) 1 tab PO QDAY PRN; Protocol PRN Reason: constipation Stop: 11/23/25 14:09 Discontinued Medications Labetalol HCl (Labetalol Inj 5 Mg/Ml Vial 4 Ml) 10 mg IVP PRN PRN PRN Reason: sbp>220 or dbp > 110 Stop: 11/23/25 14:19 See above Consultations Consultation(s) initiated? (list below): Yes Consultation #1 (Physician, Specialty, Details): See MDM Diagnosis Eye Problem Differential Diagnosis: corneal abrasion, subconjunctival hemorrhage, glaucoma and other (CVA, TIA ) Most likely diagnosis given after review of the tests above:: Left eye vision loss Admission Indicated Admission indicated?: indicated Admission Request Was there a request for admission?: Yes Admission Attestation Admission request attestation: Discussed case with [] from Hospitalist service regarding admission. Discussed patients ED course, exam findings, labs, and radiology results. The Hospitalist [agrees,declines] to accept the patient for admission. Disposition Plan Disposition Plan: Admit Discharge Plan Plan Patient Disposition: Admit Acute Care w/in Hospital Problem List Clinical Impression: Vision loss, left eye
--- NOTE | 2025-10-24 15:23 | ESHP_ITS ---
<Statement entered by Kd Pike MD - 11/05/25 09:17> I reviewed above note and agree with findings and plans. I have also personally examined the patient with medicine team and went over assessment and plan with medical team including public relations intern and resident physician. <Statement entered by Sandro Villanueva MD - 10/24/25 15:55> In summary: 75-year-old female with past medical history as below, admitted as a stroke workup following an acute transient right eye vision loss that resolved. Currently reports no recurrent vision problems bilaterally, funduscopic exam did not show any acute changes. Head CT and head/neck CTA also negative. Continued on stroke protocol per teleneuro recommendations. I?ve reviewed the note and agree with this assessment and plan, with the exceptions outlined above. I personally went over the labs, imaging, home medications, and prior records, and examined the patient. The case was also reviewed with the attending physician. Please note: this document was transcribed using voice recognition technology; minor inaccuracies may be present. Sandro Villanueva DO PGY II Documentation for date of: 10/24/25 HPI History of Present Illness Chief complaint: Left eye went black. History of present illness: 75-year-old female presented after a sudden, complete loss of vision in the left eye while eating breakfast this morning. The episode lasted approximately one minute. During recovery, she initially regained only the upper half of her visual field before returning fully to baseline within a few minutes. She denies headache, dizziness, weakness, numbness, speech difficulty, gait instability, chest pain, palpitations, syncope, or jaw claudication. No temporal tenderness. She reports a similar episode 2 years ago at [facility] when ?everything went black for a second,? involving both eyes, for which she received a medication under the tongue (likely nitroglycerin). No prior formal TIA/stroke diagnosis. No history of antiphospholipid syndrome. Lupus diagnosed in 2016. No history of thromboembolic disease. No antiplatelet or anticoagulant use at baseline. ED course: * NIHSS 0 * CT head negative for hemorrhage or acute ischemia * CTA head/neck negative for LVO or stenosis * Troponin negative * UA/UTox negative * CRP negative * Tele-neurology recommended full stroke workup including MRI, TTE, ESR/CRP, A1c, lipid panel, and TSH Patient now feels back to baseline with no residual deficits. Past Medical History * Systemic lupus erythematosus (dx 2016) * Hypertension * Hyperlipidemia * Arthritis * Obstructive sleep apnea (on CPAP) * Cataracts s/p surgery * Chronic pain * Prior transient visual disturbance (undiagnosed) in 2022 Past Surgical History * Five C-sections * Left knee surgery * Neck surgery * Finger surgery * Cholecystectomy * Cataract surgery (2018) Home Medications (from handwritten list provided) * Alendronate 70 mg once weekly * Omeprazole 20 mg daily * Amlodipine 10 mg daily * Furosemide 20 mg daily * Oxybutynin 5 mg every 8 hours as needed * Ibuprofen 800 mg one tablet three times daily as needed * Hydrocodone/Acetaminophen 5-325 mg one tablet every 8 hours as needed for pain * Estradiol 0.01% vaginal cream ? applicator twice weekly (Not taking anticoagulants or antiplatelets. per med rec) Allergies * NKDA Social History * No smoking * No EtOH * No illicit drug use * Lives at home * Uses CPAP Family History * No known premature cerebrovascular disease Exam Vital Signs Temp Pulse Resp BP Pulse Ox O2 Del Method 97.5 F 73 18 134/71 H 97 Room Air 10/24/25 12:33 10/24/25 15:07 10/24/25 15:07 10/24/25 12:56 10/24/25 12:56 10/24/25 12:56 Narrative Exam General: Alert, interactive, no distress HEENT: Pupils equal/reactive; visual bearden full now; no temporal tenderness Cardiac: RRR, no murmurs Resp: CTAB Abd: Soft, NT/ND Ext: No edema Neuro: Alert, oriented ?3, Cranial nerves II?XII intact,Strength 5/5 throughout, Sensation intact, No drift, no extinction, Coordination intact, NIHSS = 0. Results: Labs 10/24/25 12:56 10/24/25 12:56 Labs: Short CBC 10/24/25 Range/Units 12:56 WBC 6.1 (3.6-11.0) Thou/mm3 Hgb 12.3 (12.0-16.0) g/dL Hct 38.1 (36.0-46.0) % Plt Count 223 (140-440) Thou/mm3 BMP 10/24/25 12:56 Sodium 142 Potassium 3.4 Chloride 107 Carbon Dioxide 26.3 BUN 17 Creatinine 0.8 Glucose 111 H Calcium 8.7 Cardiac Enzymes 10/24/25 Range/Units 12:56 Troponin I 0.020 (0.0-0.045) ng/mL Liver Function 10/24/25 Range/Units 12:56 Total Bilirubin 0.4 (0.3-1.2) mg/dL AST 23 (0-34) U/L ALT 21 (10-49) U/L Alkaline Phosphatase 91 (46-116) U/L Albumin 4.7 (3.4-4.8) gm/dL Urine 10/24/25 Range/Units 13:28 Urine Color Colorless A (Lt Yel-Yel) Urine Clarity Clear (Clear/Hazy) Urine pH 6.5 (5.0-7.0) Ur Specific [place] 1.009 (1.001-1.035) Urine Protein Negative (Neg - Trace) Urine Glucose (UA) Negative (Negative) Quality Measures Quality Measures stroke Suspected type of Stroke: Unknown at this time Tenecteplase given: within 60 min of arrival Rehab services: PT evaluation ordered VTE Prophylaxis: pharmaceutical Antithrombotic by day 2:: ordered Statin ordered: >75 y/o moderate or high intensity dose Anticoagulation ordered for A-fib or flutter (current or hx): not indicated Advance care planning discussed with:: patient Medications Home Medications and Allergies Home Medications ?Medication ?Instructions ?Recorded ?Confirmed ?Type alendronate 70 mg tablet (Fosamax) 70 mg PO QWEEK #0 t abs 12/09/16 10/24/25 History omeprazole 20 mg capsule,delayed 20 mg PO QDAY ##0 06/0710/24/25 History release amlodipine 10 mg tablet 10 mg PO QDAY 11/29/1810/24 History furosemide 20 mg tablet 20 mg PO DAILY 02/23/2502/13 History ibuprofen 800 mg tablet (IBU) 800 mg PO Q8H PRN pain 0 02/23/25 10/24/25 History oxybutynin chloride 5 mg tablet 5 mg PO Q8H PRN bladde r spasms 02/23/25 10/24/25 History apixaban 5 mg tablet (Eliquis) 5 mg PO BID 05/08/25 History Held on 05/10/25. Instructions: Resume on 05/14/25. calcium 600 mg (as 1 tab PO QDAY 05/08/2510/24 History carbonate)-vitamin D3 5 mcg (200 unit) tablet omega 4-vmw-scq-fish oil 1,200 mg 1 cap PO QDAY 10/24/25 History (144 mg-216 mg) capsule (Fish Oil) estradiol 0.01% (0.1 mg/gram) applic 10/24/25 History vaginal cream nitroglycerin 0.4 mg sublingual mg buccal 10/24/25 Hi story tablet Allergies Allergy/AdvReac Type Severity Reaction Status Date / Time No Known Allergies Allergy Verified 10/24/25 12:34 Visit Medications Acetaminophen (Acetaminophen 325 Mg Tablet) 650 mg PO Q6H PRN PRN Reason: Fever >100.4 or pain 1-5 Stop: 11/23/25 14:09 Enoxaparin Sodium (Enoxaparin Sod Inj 40 Mg/0.4 Ml Syringe) 40 mg SC QDAY CHLOE Stop: 11/08/25 08:59 Labetalol HCl (Labetalol Inj 5 Mg/Ml Vial 4 Ml) 10 mg IVP Q2HR PRN PRN Reason: sbp>220 or dbp > 110 Stop: 11/23/25 15:59 Ondansetron HCl (Ondansetron Inj 2 Mg/Ml Inj 2 Ml) 4 mg IVP Q6H PRN; Protocol PRN Reason: NAUSEA OR VOMITING Stop: 11/23/25 14:09 Oxycodone/Acetaminophen (Oxycodone/Apap 5/325 Tablet) 1 tab PO Q6H PRN PRN Reason: Pain Scale 6-10 Stop: 10/29/25 14:09 Pantoprazole Sodium (Pantoprazole 40 Mg Tablet) 40 mg PO QDAY CHLOE Stop: 11/24/25 08:59 Sennosides (Senna Tablet) 1 tab PO QDAY PRN; Protocol PRN Reason: constipation Stop: 11/23/25 14:09 Discontinued Medications Labetalol HCl (Labetalol Inj 5 Mg/Ml Vial 4 Ml) 10 mg IVP PRN PRN PRN Reason: sbp>220 or dbp > 110 Stop: 11/23/25 14:19 Assessment & Plan Plan 75-year-old female with PMH of lupus (2016), hypertension, hyperlipidemia, arthritis, DAVID on CPAP, chronic pain, and prior cataract surgery, presenting with transient monocular left-eye vision loss concerning for amaurosis fugax vs TIA, NIHSS 0, now admitted for stroke evaluation. # Transient Monocular Left-Eye Vision Loss # Amaurosis Fugax vs TIA 75-year-old female with transient monocular vision loss in the left eye. No associated weakness, numbness, or speech difficulty. CTA/CT negative. High suspicion for amaurosis fugax or TIA, given her history of lupus and the transient nature of the event. Plan: * Admit to Telemetry * Neuro checks q4h * MRI brain without contrast * TTE with bubble * ESR/CRP * TSH, A1c, Lipid panel * ASA 325 mg once after swallow screen, then ASA 81 mg daily * HOB 30? # Systemic Lupus Erythematosus Diagnosed with lupus in 2016. No active signs or symptoms of lupus flare at this time, but possible vasculopathy contributing to her symptoms. Plan: * Confirm home lupus medications # Essential Hypertension BP controlled in the ED. Plan: * Continue home amlodipine * Monitor BP daily in telemetry # Obstructive Sleep Apnea Uses CPAP at home. Plan: * Continue CPAP nightly * Monitor for any worsening of DAVID symptoms # Chronic Pain / Arthritis Patient reports chronic pain and uses ibuprofen and hydrocodone. Pain level and impact on daily activities are unclear. Plan: * Continue ibuprofen 800 mg PRN for pain * Continue hydrocodone/acetaminophen 5-325 mg every 8 hours PRN for pain * Avoid excessive NSAIDs if renal function worsens # GERD Patient on omeprazole at home med Plan: * Continue omeprazole 20 mg daily * Consider GI referral for further evaluation if symptoms worsen # Urinary Urgency Currently asymptomatic. Patient on oxybutynin for urinary urgency. Plan: * Continue oxybutynin 5 mg every 8 hours PRN * Monitor for any adverse effects # Osteoporosis Patient on alendronate for osteoporosis. Plan: * Hold alendronate while inpatient Health Maintenance: Code Status: Full code Feeding: No restrictions, continue regular diet Thromboprophylaxis: Lovenox 40 mg SC daily GI Prophylaxis: Continue omeprazole Disposition: Admit to telemetry for stroke/TIA workup ----- Plan discussed with attending physician Dr. Pike and senior resident Dr. Rich Mcrae MD PGY-1 Internal Medicine
--- NOTE | 2025-10-24 15:23 | PD.RESHP ---
Documentation for date of: 10/24/25 HPI History of Present Illness Chief complaint: Left eye went black. History of present illness: 75-year-old female presented after a sudden, complete loss of vision in the left eye while eating breakfast this morning. The episode lasted approximately one minute. During recovery, she initially regained only the upper half of her visual field before returning fully to baseline within a few minutes. She denies headache, dizziness, weakness, numbness, speech difficulty, gait instability, chest pain, palpitations, syncope, or jaw claudication. No temporal tenderness. She reports a similar episode 2 years ago at [facility] when ?everything went black for a second,? involving both eyes, for which she received a medication under the tongue (likely nitroglycerin). No prior formal TIA/stroke diagnosis. No history of antiphospholipid syndrome. Lupus diagnosed in 2015. No history of thromboembolic disease. No antiplatelet or anticoagulant use at baseline. ED course: NIHSS 0 CT head negative for hemorrhage or acute ischemia CTA head/neck negative for LVO or stenosis Troponin negative UA/UTox negative CRP negative Tele-neurology recommended full stroke workup including MRI, TTE, ESR/CRP, A1c, lipid panel, and TSH Patient now feels back to baseline with no residual deficits. Past Medical History Systemic lupus erythematosus (dx 2015) Hypertension Hyperlipidemia Arthritis Obstructive sleep apnea (on CPAP) Cataracts s/p surgery Chronic pain Prior transient visual disturbance (undiagnosed) in 2022 Past Surgical History Five C-sections Left knee surgery Neck surgery Finger surgery Cholecystectomy Cataract surgery (2018) Home Medications (from handwritten list provided) Alendronate 70 mg once weekly Omeprazole 20 mg daily Amlodipine 10 mg daily Furosemide 20 mg daily Oxybutynin 5 mg every 8 hours as needed Ibuprofen 800 mg one tablet three times daily as needed Hydrocodone/Acetaminophen 5-325 mg one tablet every 8 hours as needed for pain Estradiol 0.01% vaginal cream ? applicator twice weekly (Not taking anticoagulants or antiplatelets. per med rec) Allergies NKDA Social History No smoking No EtOH No illicit drug use Lives at home Uses CPAP Family History No known premature cerebrovascular disease Exam Vital Signs Temp Pulse Resp BP Pulse Ox O2 Del Method 97.5 F 73 18 134/71 H 97 Room Air 10/24/25 12:33 10/24/25 15:07 10/24/25 15:07 10/24/25 12:56 10/24/25 12:56 10/24/25 12:56 Narrative Exam General: Alert, interactive, no distress HEENT: Pupils equal/reactive; visual bearden full now; no temporal tenderness Cardiac: RRR, no murmurs Resp: CTAB Abd: Soft, NT/ND Ext: No edema Neuro: Alert, oriented ?3, Cranial nerves II?XII intact,Strength 5/5 throughout, Sensation intact, No drift, no extinction, Coordination intact, NIHSS = 0. Results: Labs 10/24/25 12:56 10/24/25 12:56 Labs: Short CBC 10/24/25 Range/Units 12:56 WBC 6.1 (3.6-11.0) Thou/mm3 Hgb 12.3 (12.0-16.0) g/dL Hct 38.1 (36.0-46.0) % Plt Count 223 (140-440) Thou/mm3 BMP 10/24/25 12:56 Sodium 142 Potassium 3.4 Chloride 107 Carbon Dioxide 26.3 BUN 17 Creatinine 0.8 Glucose 111 H Calcium 8.7 Cardiac Enzymes 10/24/25 Range/Units 12:56 Troponin I 0.020 (0.0-0.045) ng/mL Liver Function 10/24/25 Range/Units 12:56 Total Bilirubin 0.4 (0.3-1.2) mg/dL AST 23 (0-34) U/L ALT 21 (10-49) U/L Alkaline Phosphatase 91 (46-116) U/L Albumin 4.7 (3.4-4.8) gm/dL Urine 10/24/25 Range/Units 13:28 Urine Color Colorless A (Lt Yel-Yel) Urine Clarity Clear (Clear/Hazy) Urine pH 6.5 (5.0-7.0) Ur Specific [place] 1.009 (1.001-1.035) Urine Protein Negative (Neg - Trace) Urine Glucose (UA) Negative (Negative) Quality Measures Quality Measures stroke Suspected type of Stroke: Unknown at this time Tenecteplase given: within 60 min of arrival Rehab services: PT evaluation ordered VTE Prophylaxis: pharmaceutical Antithrombotic by day 2:: ordered Statin ordered: >75 y/o moderate or high intensity dose Anticoagulation ordered for A-fib or flutter (current or hx): not indicated Advance care planning discussed with:: patient Medications Home Medications and Allergies Home Medications ?Medication ?Instructions ?Recorded ?Confirmed ?Type alendronate 70 mg tablet (Fosamax) 70 mg PO QWEEK #0 tabs 12/09/16 10/24/25 History omeprazole 20 mg capsule,delayed 20 mg PO QDAY ##0 05/28/17 10/24/25 History release amlodipine 10 mg tablet 10 mg PO QDAY 11/29/18 10/24/25 History furosemide 20 mg tablet 20 mg PO DAILY 02/23/25 10/24/25 History ibuprofen 800 mg tablet (IBU) 800 mg PO Q8H PRN pain 02/23/25 10/24/25 History oxybutynin chloride 5 mg tablet 5 mg PO Q8H PRN bladder spasms 02/23/25 10/24/25 History apixaban 5 mg tablet (Eliquis) 5 mg PO BID 05/08/25 05/08/25 History Held on 05/10/25. Instructions: Resume on 05/14/25. calcium 600 mg (as 1 tab PO QDAY 05/08/25 10/24/25 History carbonate)-vitamin D3 5 mcg (200 unit) tablet omega 9-wfe-tlj-fish oil 1,200 mg 1 cap PO QDAY 05/08/25 10/24/25 History (144 mg-216 mg) capsule (Fish Oil) estradiol 0.01% (0.1 mg/gram) applic 10/24/25 History vaginal cream nitroglycerin 0.4 mg sublingual mg buccal 10/24/25 History tablet Allergies Allergy/AdvReac Type Severity Reaction Status Date / Time No Known Allergies Allergy Verified 10/24/25 12:34 Visit Medications Acetaminophen (Acetaminophen 325 Mg Tablet) 650 mg PO Q6H PRN PRN Reason: Fever >100.4 or pain 1-5 Stop: 11/23/25 14:09 Enoxaparin Sodium (Enoxaparin Sod Inj 40 Mg/0.4 Ml Syringe) 40 mg SC QDAY CHLOE Stop: 11/08/25 08:59 Labetalol HCl (Labetalol Inj 5 Mg/Ml Vial 4 Ml) 10 mg IVP Q2HR PRN PRN Reason: sbp>220 or dbp > 110 Stop: 11/23/25 15:59 Ondansetron HCl (Ondansetron Inj 2 Mg/Ml Inj 2 Ml) 4 mg IVP Q6H PRN; Protocol PRN Reason: NAUSEA OR VOMITING Stop: 11/23/25 14:09 Oxycodone/Acetaminophen (Oxycodone/Apap 5/325 Tablet) 1 tab PO Q6H PRN PRN Reason: Pain Scale 6-10 Stop: 10/29/25 14:09 Pantoprazole Sodium (Pantoprazole 40 Mg Tablet) 40 mg PO QDAY CHLOE Stop: 11/24/25 08:59 Sennosides (Senna Tablet) 1 tab PO QDAY PRN; Protocol PRN Reason: constipation Stop: 11/23/25 14:09 Discontinued Medications Labetalol HCl (Labetalol Inj 5 Mg/Ml Vial 4 Ml) 10 mg IVP PRN PRN PRN Reason: sbp>220 or dbp > 110 Stop: 11/23/25 14:19 Assessment & Plan Plan 75-year-old female with PMH of lupus (2015), hypertension, hyperlipidemia, arthritis, DAVID on CPAP, chronic pain, and prior cataract surgery, presenting with transient monocular left-eye vision loss concerning for amaurosis fugax vs TIA, NIHSS 0, now admitted for stroke evaluation. # Transient Monocular Left-Eye Vision Loss # Amaurosis Fugax vs TIA 75-year-old female with transient monocular vision loss in the left eye. No associated weakness, numbness, or speech difficulty. CTA/CT negative. High suspicion for amaurosis fugax or TIA, given her history of lupus and the transient nature of the event. Plan: Admit to Telemetry Neuro checks q4h MRI brain without contrast TTE with bubble ESR/CRP TSH, A1c, Lipid panel ASA 325 mg once after swallow screen, then ASA 81 mg daily HOB 30? # Systemic Lupus Erythematosus Diagnosed with lupus in 2016. No active signs or symptoms of lupus flare at this time, but possible vasculopathy contributing to her symptoms. Plan: Confirm home lupus medications # Essential Hypertension BP controlled in the ED. Plan: Continue home amlodipine Monitor BP daily in telemetry # Obstructive Sleep Apnea Uses CPAP at home. Plan: Continue CPAP nightly Monitor for any worsening of DAVID symptoms # Chronic Pain / Arthritis Patient reports chronic pain and uses ibuprofen and hydrocodone. Pain level and impact on daily activities are unclear. Plan: Continue ibuprofen 800 mg PRN for pain Continue hydrocodone/acetaminophen 5-325 mg every 8 hours PRN for pain Avoid excessive NSAIDs if renal function worsens # GERD Patient on omeprazole at home med Plan: Continue omeprazole 20 mg daily Consider GI referral for further evaluation if symptoms worsen # Urinary Urgency Currently asymptomatic. Patient on oxybutynin for urinary urgency. Plan: Continue oxybutynin 5 mg every 8 hours PRN Monitor for any adverse effects # Osteoporosis Patient on alendronate for osteoporosis. Plan: Hold alendronate while inpatient Health Maintenance: Code Status: Full code Feeding: No restrictions, continue regular diet Thromboprophylaxis: Lovenox 40 mg SC daily GI Prophylaxis: Continue omeprazole Disposition: Admit to telemetry for stroke/TIA workup ----- Plan discussed with attending physician Dr. Pike and senior resident Dr. Rich Mcrae MD PGY-1 Internal Medicine
[2025-10-24] MEDS: ACETAMINOPHEN 325 MG TABLET 650 MG PO (19:50)
[2025-10-25] VITALS (8 sets, daily range): BP systolic 105–126; BP diastolic 60–75; PULSE 61–86; RESP 12–98; TEMP 36.1–36.5; O2SAT 92–99; BMI 33.5
--- NOTE | 2025-10-25 | XR_ITS ---
Examinations: MRI Brain without intravenous contrast. MRI brain with intravenous contrast MRA brain with intravenous contrast. MRA brain without intravenous contrast MRA neck with intravenous contrast Date and time of exam: October 25, 2025, 1031 hours INDICATIONS: Stroke alert, onset right eye vision loss yesterday Technique: Multiple axial and sagittal images of the brain have been obtained Siemens high-resolution 1.5 [place]se short bore scanner is utilized. Sagittal sections, T1-weighted, TR 500, TE 14 Axial sections proton density and T2-weighted, TR 3,000, TE 34, TR 3,000, TE 91 Inversion recovery axial images, TR 9,260, TE 111, TI 2,500 Diffusion weighted images, axial sections, TR 4,800, TE 128, B value 1,000 Axial sections, ADC map, TR 4,800, TE 128. Contrast images have been obtained post intravenous 19 cc Gadolinium. T1-weighted axial and coronal images post contrast have been obtained. Angiographic images of neck and brain are obtained pre and post contrast. 3-D post processing performed, including brain, extracranial neck arterial maximum intensity projections Findings: Sell[place] is not enlarged. The optic chiasm and infundibular stalk are not remarkable. Prepontine and interpeduncular cisterns are not enlarged. No localized enlargement of the medulla or ascencion. Fourth ventricle and cerebellar tonsils normal in position. Subacute hemorrhage is not seen. Fourth ventricle is midline. Mass in the cerebellopontine angle region is not evident. 7th and 8th nerve complexes exhibits symmetry. Globes are symmetrical with no retro-orbital mass. Increased white matter signal moderate Diffusion-weighted images demonstrate no focus of restricted diffusion. Mass-effect upon the ventricular system is not identified. Abnormal contrast enhancement is not seen. MRA brain carotid images no significant carotid stenoses, no cerebral large vessel arterial occlusions Impression: Negative for acute hemorrhage mass effect or midline shift No acute infarct Moderate chronic microvascular white matter change No significant carotid stenoses No cerebral large vessel arterial occlusions or thrombus
[2025-10-25 06:21] LABS: INR 1.0 (0.9-1.3); Prothrombin Time 10.6 Seconds (9.0-12.2)
[2025-10-25 06:22] LABS: Basophils # (Auto) 0.0 Thou/mm3 (0.0-0.2); Basophils % (Auto) 1 % (0-2.5); Eosinophils # (Auto) 0.1 Thou/mm3 (0.0-0.5); Eosinophils % (Auto) 2 % (0-10); Hematocrit 36.2 % (36.0-46.0); Hemoglobin 11.5 g/dL (12.0-16.0); Immature Granulocytes Auto 0.01 Thou/mm3 (0.00-0.00); Lymphocytes # (Auto) 2.1 Thou/mm3 (1.0-4.8); Lymphocytes % (Auto) 49 % (10-50); Mean Corpuscular HGB Conc 31.8 g/dl (31.0-37.0); Mean Corpuscular Hemoglobin 27.5 pg (25.0-35.0); Mean Corpuscular Volume 87 fL (80-100); Monocytes # (Auto) 0.3 Thou/mm3 (0.0-0.8); Monocytes % (Auto) 8 % (0-12); Neutrophils # (Auto) 1.8 Thou/mm3 (1.8-7.7); Neutrophils % (Auto) 41 % (37-80); Nucleated Red Blood Cell # 0.00 Thou/mm3 (0.00-0.00); Nucleated Red Blood Cell % 0 /100 WBC (0); Platelet Count 206 Thou/mm3 (140-440); RDW Standard Deviation 48.2 fL (36.4-46.3); Red Blood Count 4.18 Miln/mm3 (4.00-5.20); White Blood Count 4.3 Thou/mm3 (3.6-11.0)
[2025-10-25 06:43] LABS: Alanine Aminotransferase 20 U/L (10-49); Albumin, Serum 4.2 gm/dL (3.4-4.8); Albumin/Globulin Ratio 1.7 (1.2-2.2); Alkaline Phosphatase 74 U/L (46-116); Anion Gap 10 (7-16); Aspartate Amino Transferase 24 U/L (0-34); BUN/Creatinine Ratio 20 Ratio (12-20); Bilirubin,Total 0.4 mg/dL (0.3-1.2); Blood Urea Nitrogen 16 mg/dL (9-23); Calcium 8.4 mg/dL (8.3-10.6); Calcium (Corrected) 8.4 mg/dL (8.5-10.1); Carbon Dioxide 24.9 mMol/L (20.0-31.0); Cardiac Risk Estimate 2.7 RATIO (3.7-5.6); Chloride 108 mMol/L (98-107); Cholesterol 145 mg/dL (132-200); Creatinine (Component) 0.8 mg/dL (0.6-1.3); Estimated Creatinine Clearance 56.1 mL/min (>60); Globulin 2.5 gm/dL (2.3-3.5); Glucose 95 mg/dL (74-106); HDL Cholesterol 54 mg/dL (40-60); LDL Cholesterol,Calculated 69 mg/dL (0-130); Magnesium 1.9 mg/dL (1.6-2.6); Osmolality,Calculated 286 (275-295); Phosphorous 3.9 mg/dL (2.4-5.1); Potassium 3.4 mMol/L (3.4-5.1); Sodium 143 mMol/L (136-145); Thyroid Stimulating Hormone 2.42 uIU/mL (0.55-4.78); Total Protein 6.7 gm/dL (5.7-8.2); Triglycerides 110 mg/dL (30-150); eGFR > 60 See Note
[2025-10-25 06:45] LABS: Glucose Estimated Average 111 mg/dL (80-131); Hemoglobin A1C 5.5 % Hgb (4.8-6.0)
[2025-10-25] MEDS: ENOXAPARIN SOD INJ 40 MG/0.4 ML SYRINGE SC (08:02)
[2025-10-25] MEDS: PANTOPRAZOLE 40 MG TABLET PO (08:03)
[2025-10-25] MEDS: ASPIRIN EC 81 MG TABEC PO (08:03)
--- NOTE | 2025-10-25 12:26 | PC.PT ---
PT eval only. Patient is xI with bed mobility, transfers, and ambulation with no AD. Patient is safe to ambulate to the bathroom and in the halls with no staff and no AD. RN made aware.
--- NOTE | 2025-10-25 15:03 | PD.RESCONSUL ---
HPI Data of Consult Requesting Physician: Kd Pike MD Admitting Provider: Kd Pike MD Attending Provider: Kd Pike MD Primary Care Provider: Physician No Primary/Family Consult Narrative Reason for consult: Transient loss of vision x 1 eye x 60 seconds History of present illness: 75-year-old female with past medical history of hypertension, hyperlipidemia, DAVID, arthritis, presented after a sudden, complete loss of vision in the left eye while eating breakfast this morning. The episode lasted approximately one minute. During recovery, she initially regained only the upper half of her visual field before returning fully to baseline within a few minutes. She denies headache, dizziness, weakness, numbness, speech difficulty, gait instability, chest pain, palpitations, syncope, or jaw claudication. No temporal tenderness.She reports a similar episode 2 years ago at [facility] when ?everything went black for a second,? involving both eyes, for which she received a medication under the tongue (likely nitroglycerin). No prior formal TIA/stroke diagnosis. Stroke alert was called in ED, NIHSS score was 0 however recommended stroke rule out workup. In-house Neurology was consulted. cc:: cc: Kd Pike MD Past Medical History Past Medical History NEUROLOGIC: Positive Migraine CARDIAC: Positive Cardiac Disorders, Valvular Heart Disease (mitral reg), Edema and Hypertension RESPIRATORY: Positive Sleep Apnea GASTROINTESTINAL: Positive Gastrointestinal Disorders, Gall Bladder Disease, Esophageal Varices, Ulcer and Gastroesophageal Reflux Disease REPRODUCTIVE: Positive Previous Pregnancies MUSCULOSKELETAL: Positive Musculoskeletal Disorders, Arthritis, Osteoporosis and Degenerative Disk Disease ENT: Positive Cataracts (BILATERAL) ENDOCRINE: Positive Endocrine Disorders and Systemic Lupus Erythematosus OTHER HISTORY: Positive Hospitalization (surgery), Chicken Pox, Measles and Mumps Family History FAMILY HISTORY: Positive Family Respiratory Disorders (FATHER (TB)), Family Cardiac Disorders (MOTHER (NM)), Family Cancer (BROTHER COLON) and Family Surgery (SISTER HYSTERECTOMY) Surgical History SURGICAL: Positive Abdominal Surgery, Arthroscopy (Left meniscectomy) and Section (X5) Social History SMOKING STATUS: Never smoker Exam Vital Signs Temp Pulse Resp BP Pulse Ox O2 Del Method FiO2 97.0 F 65 19 108/69 93 L Room Air 10/25/25 12:10/25/25 12:10/25/25 12:10/25/25 12:10/25/25 12:10/25/25 08:00 10/25/25 00:05 Results Labs 10/25/25 05:03 10/25/25 05:03 Labs: Short CBC 10/25/25 Range/Units 05:03 WBC 4.3 (3.6-11.0) Thou/mm3 Hgb 11.5 L (12.0-16.0) g/dL Hct 36.2 (36.0-46.0) % Plt Count 206 (140-440) Thou/mm3 BMP 10/25/25 05:03 Sodium 143 Potassium 3.4 Chloride 108 H Carbon Dioxide 24.9 BUN 16 Creatinine 0.8 Glucose 95 Calcium 8.4 Liver Function 10/25/25 Range/Units 05:03 Total Bilirubin 0.4 (0.3-1.2) mg/dL AST 24 (0-34) U/L ALT 20 (10-49) U/L Alkaline Phosphatase 74 (46-116) U/L Albumin 4.2 D (3.4-4.8) gm/dL Quality Measures Quality Measures none Advance care planning discussed with:: patient Medications Home Medications and Allergies Home Medications ?Medication ?Instructions ?Recorded ?Confirmed ?Type alendronate 70 mg tablet (Fosamax) 70 mg PO QWEEK #0 tabs 12/09/16 10/24/25 History omeprazole 20 mg capsule,delayed 20 mg PO QDAY ##0 05/28/17 10/24/25 History release amlodipine 10 mg tablet 10 mg PO QDAY 11/29/18 10/24/25 History furosemide 20 mg tablet 20 mg PO DAILY 02/23/25 10/24/25 History ibuprofen 800 mg tablet (IBU) 800 mg PO Q8H PRN pain 02/23/25 10/24/25 History oxybutynin chloride 5 mg tablet 5 mg PO Q8H PRN bladder spasms 02/23/25 10/24/25 History calcium 600 mg (as 1 tab PO QDAY 05/08/25 10/24/25 History carbonate)-vitamin D3 5 mcg (200 unit) tablet omega 0-mrq-bgt-fish oil 1,200 mg 1 cap PO QDAY 05/08/25 10/24/25 History (144 mg-216 mg) capsule (Fish Oil) estradiol 0.01% (0.1 mg/gram) See Rx Instructions .Route .COMPLEX 10/24/25 10/24/25 History vaginal cream nitroglycerin 0.4 mg sublingual 0.4 mg buccal Q5MIN PRN chest pain 10/24/25 10/24/25 History tablet Allergies Allergy/AdvReac Type Severity Reaction Status Date / Time No Known Allergies Allergy Verified 10/24/25 12:34 Visit Medications Acetaminophen (Acetaminophen 325 Mg Tablet) 650 mg PO Q6H PRN PRN Reason: Fever >100.4 or pain 1-5 Stop: 11/23/25 14:09 Last Admin: 10/24/25 19:50 Dose: 650 mg Aspirin (Aspirin Ec 81 Mg Tabec) 81 mg PO QDAY [facility] Stop: 11/24/25 08:59 Last Admin: 10/25/25 08:03 Dose: 81 mg Enoxaparin Sodium (Enoxaparin Sod Inj 40 Mg/0.4 Ml Syringe) 40 mg SC QDAY [facility] Stop: 11/08/25 08:59 Last Admin: 10/25/25 08:02 Dose: 40 mg Labetalol HCl (Labetalol Inj 5 Mg/Ml Vial 4 Ml) 10 mg IVP Q2HR PRN PRN Reason: sbp>220 or dbp > 110 Stop: 11/23/25 15:59 Ondansetron HCl (Ondansetron Inj 2 Mg/Ml Inj 2 Ml) 4 mg IVP Q6H PRN; Protocol PRN Reason: NAUSEA OR VOMITING Stop: 11/23/25 14:09 Oxybutynin Chloride (Oxybutynin Chlor 5 Mg Tablet) 5 mg PO TID PRN PRN Reason: urinary urgency Stop: 11/23/25 21:59 Oxycodone/Acetaminophen (Oxycodone/Apap 5/325 Tablet) 1 tab PO Q6H PRN PRN Reason: Pain Scale 6-10 Stop: 10/29/25 14:09 Last Admin: 10/25/25 00:31 Dose: 1 tab Pantoprazole Sodium (Pantoprazole 40 Mg Tablet) 40 mg PO QDAY [facility] Stop: 11/24/25 08:59 Last Admin: 10/25/25 08:03 Dose: 40 mg Sennosides (Senna Tablet) 1 tab PO QDAY PRN; Protocol PRN Reason: constipation Stop: 11/23/25 14:09 Discontinued Medications Aspirin (Aspirin 325 Mg Tablet) 325 mg PO X1 ONE Stop: 10/24/25 16:56 Last Admin: 10/24/25 17:35 Dose: 325 mg Labetalol HCl (Labetalol Inj 5 Mg/Ml Vial 4 Ml) 10 mg IVP PRN PRN PRN Reason: sbp>220 or dbp > 110 Stop: 11/23/25 14:19 Assessment & Plan Plan 75-year-old female with PMH of lupus (2015), hypertension, hyperlipidemia, arthritis, DAVID on CPAP, chronic pain, and prior cataract surgery, presenting with transient monocular left-eye vision loss concerning for amaurosis fugax vs TIA, NIHSS 0, now admitted for stroke evaluation, neuro consulted for further management. # Transient Monocular Left-Eye Vision Loss # Possible TIA CT head- negative CTA head/neck- negative MRI/MRA- negative, chronic white matter changes Echo- normal EF 60-65%, grade I diastolic dysfunction, positive bubble study -Recommend 21 days of DAPT with aspirin 81 mg qday and Plavix 75 mg qday followed by Plavix alone indefinitely -Follow up with Neurology within 2 weeks -Follow up with your Gaming Surveillance Observer -Follow up with a [employer] Obiee Developer if possible Rest of conditions to continue current management per primary team: # Systemic Lupus Erythematosus # Essential Hypertension # Obstructive Sleep Apnea # Chronic Pain / Arthritis # GERD # Urinary Urgency # Osteoporosis Patient was discussed with the Neurology attending, Dr. Preston. Thank you for allowing us to participate in the care of this patient. Vera Allen, PGY-3 Attending Provider Attestation/Addendum I personally have seen and examined the patient at the bedside and I agreed with the resident's findings, assessment and plan of care. Patient presented with the amblyopia, form of transient ischemic attack. Will continue with dual antiplatelet therapy for 21 days followed by Plavix alone with statin. Reassurance given to the patient regarding the negative workup. I will see her back in 2 weeks she is stable for discharge from neurology standpoint.
--- NOTE | 2025-10-25 15:16 | PC.SS ---
HAIR SPINNER conducted bedside contact with the patient conduct initial assessment and to discuss discharge planning.? HAIR SPINNER utilized translation services to assist with the discussion.? Patient confirmed demographic information.? Patient resides at home with spouse, Jovi Bailey .? Patient does not utilize any form of DME to assist with ambulation.? Patient does not utilize home oxygen.? Patient utilizes a C-PAP for nocturnal use.? Patient describes the ability to complete ADL?s independently.? Patient identified spouse, Jovi Bailey; as surrogate medical decision maker.? Patient?s PCP is Dr. Lindsey.? Patient?s document management technician is Dr. Israel.? Patient possesses sleep apnea.? Patient utilizes [facility] for medication services.? Plan is for the patient to return home at the time of discharge.? Family will provide transportation on behalf of the patient.? No further discharge needs identified by the patient.? No further intervention required at this time, child protective services social worker will be available to address any further concerns.? Next of Kin: Jovi Bailey D/C Plan: Home
--- NOTE | 2025-10-25 16:59 | PD.RESPRO ---
Documentation for date of: 10/25/25 Exam Vital Signs Temp Pulse Resp BP Pulse Ox O2 Del Method FiO2 97.0 F 65 19 108/69 93 L Room Air 25 10/25/25 12:00 10/25/25 12:00 10/25/25 12:00 10/25/25 12:00 10/25/25 12:00 10/25/25 08:00 10/25/25 00:05 Objective Labs 10/25/25 05:03 10/25/25 05:03 Labs: Laboratory Results - last 24 hr 10/25/25 05:03 WBC 4.3 RBC 4.18 Hgb 11.5 L Hct 36.2 MCV 87 MCH 27.5 MCHC 31.8 RDW Std Deviation 48.2 H Plt Count 206 Neut % (Auto) 41 Lymph % (Auto) 49 [place] % (Auto) 8 Eos % (Auto) 2 Baso % (Auto) 1 Neut # (Auto) 1.8 Lymph # (Auto) 2.1 [place] # (Auto) 0.3 Eos # (Auto) 0.1 Baso # (Auto) 0.0 Immature Gran # (Auto) 0.01 H Absolute Nucleated RBC 0.00 Immature Gran % 0 Nucleated RBC % 0 PT 10.6 INR 1.0 Sodium 143 Potassium 3.4 Chloride 108 H Carbon Dioxide 24.9 Anion Gap 10 BUN 16 Creatinine 0.8 Estim Creat Clear Calc 56.1 L eGFR > 60 BUN/Creatinine Ratio [address] Glu mg/dL 111 Hemoglobin A1c 5.5 Calculated Osmolality 286 Calcium 8.4 Corrected Calcium 8.4 L Phosphorus 3.9 Magnesium 1.9 Total Bilirubin 0.4 AST 24 ALT 20 Alkaline Phosphatase 74 Total Protein 6.7 Albumin 4.2 D Globulin 2.5 Albumin/Globulin Ratio 1.7 Triglycerides 110 Cholesterol 145 LDL Cholesterol, Calc 69 HDL Cholesterol 54 Cholesterol/HDL Ratio 2.7 L TSH 2.42 Quality Measures Quality Measures none Assessment & Plan Assessment Current Active Medications: Generic Name Dose Route Start Last Admin Trade Name Freq PRN Reason Stop Dose Admin Acetaminophen 650 mg 10/24/25 14:10 10/24/25 19:50 Acetaminophen 325 Mg Tablet PO 11/23/25 14:09 650 mg Q6H PRN Administration Fever >100.4 or pain 1-5 Aspirin 81 mg 10/25/25 09:00 10/25/25 08:03 Aspirin Ec 81 Mg Tabec PO 11/24/25 08:59 81 mg QDAY CHLOE Administration Enoxaparin Sodium 40 mg 10/25/25 09:00 10/25/25 08:02 Enoxaparin Sod Inj 40 Mg/0.4 Ml Syringe SC 11/08/25 08:59 40 mg QDAY CHLOE Administration Labetalol HCl 10 mg 10/24/25 16:00 Labetalol Inj 5 Mg/Ml Vial 4 Ml IVP 11/23/25 15:59 Q2HR PRN sbp>220 or dbp > 110 Ondansetron HCl 4 mg 10/24/25 14:10 Ondansetron Inj 2 Mg/Ml Inj 2 Ml IVP 11/23/25 14:09 Q6H PRN NAUSEA OR VOMITING Protocol Oxybutynin Chloride 5 mg 10/24/25 16:25 Oxybutynin Chlor 5 Mg Tablet PO 11/23/25 21:59 TID PRN urinary urgency Oxycodone/Acetaminophen 1 tab 10/24/25 14:10 10/25/25 00:31 Oxycodone/Apap 5/325 Tablet PO 10/29/25 14:09 1 tab Q6H PRN Administration Pain Scale 6-10 Pantoprazole Sodium 40 mg 10/25/25 09:00 10/25/25 08:03 Pantoprazole 40 Mg Tablet PO 11/24/25 08:59 40 mg QDAY CHLOE Administration Sennosides 1 tab 10/24/25 14:10 Senna Tablet PO 11/23/25 14:09 QDAY PRN constipation Protocol
--- NOTE | 2025-10-25 17:30 | ESDS_ITS ---
<Statement entered by Kd Pike MD - 11/05/25 09:18> I reviewed above note and agree with findings and plans. I have also personally examined the patient with medicine team and went over assessment and plan with medical team including exercise science internship and resident physician. Planned Discharge Date 10/25/25 DS: Providers Provider Date of admission: 10/24/25 15:29 Primary care physician: Physician No Primary/Family Admitting Provider: Kd Pike MD Attending Provider on Admission: Kd Pike MD Consults: 10/24/25 12:41 Consult to Neurology / Tele-Neurology Routine Comment: Consulting Provider: [facility] 10/24/25 14:11 Consult to Neurology / Tele-Neurology Routine Comment: Consulting Provider: Luis Preston PT [Referral Physical Therapy] Routine Comment: Physician Instructions: Referral Speech Therapy Routine Comment: Attending Provider on DC: Kd Pike MD Discharging Provider: Jc Mcrae MD DS: Diagnosis Problem List Completed Was Problem List Reviewed/Reconciled?: Yes Hospital Course Hospital Course Hospital course: 75-year-old female with a history of lupus, hypertension, hyperlipidemia, and obstructive sleep apnea, admitted for workup of transient monocular vision loss, which occurred while she was eating breakfast. The episode lasted approximately one minute and was fully resolved without any residual neurological symptoms. Initial imaging, including CT head and CTA head/neck, showed no acute ischemic changes, hemorrhage, or large vessel occlusion. The patient was assessed for a possible TIA or amaurosis fugax, and her workup included an MRI brain (pending), TTE, and ESR/CRP. The TTE revealed a positive bubble study with an EF of 60-65%. The MRI results are pending, but all other studies were unremarkable. The patient?s blood pressure was well-controlled, and she had stable vital signs throughout her hospitalization. She remained neurologically stable with NIHSS score of 0, and her laboratory results were largely within normal limits, including normal electrolytes, normal renal function, and normal coagulation studies. The patient?s clinical status improved during hospitalization, and she was deemed stable for discharge with recommendations for neurology follow-up. Diagnosis during admission: # Transient Monocular Left-Eye Vision Loss # Amaurosis Fugax vs TIA # Systemic Lupus Erythematosus # Essential Hypertension # Obstructive Sleep Apnea # Chronic Pain / Arthritis # GERD # Urinary Urgency # Osteoporosis Discharge instructions: -Start Aspirin 81 mg and Plavix 75 mg daily for 21 days, then stop aspirin and switch to Plavix only indefinitely. -Start Atorvastatin 40 mg daily. -Follow up with neurology in 1-2 weeks. -Continue regular diet; avoid heavy lifting and strenuous activity until cleared by neurology. -Contact PCP for medication refills and routine care follow-up. -Resume home medications for blood pressure, pain, and chronic conditions as prescribed. -Emergency: Go to the ER immediately if you experience new or sudden neurological symptoms. ----- Plan discussed with attending physician Dr. Glendy Mcrae MD PGY-1 Internal Medicine Time Spent with Patient Time attestation: Total time spent providing and/or coordinating discharge services: Time spent: Greater than 30 minutes Exam Vital Signs Temp Pulse Resp BP Pulse Ox O2 Del Method FiO2 97.4 F 72 18 126/67 94 L Room Air 10/25/25 16:10/25/25 16:10/25/25 16:10/25/25 16:10/25/25 16:00 10/25/25 16:10/25/25 00:05 Narrative Exam General: Alert, interactive, no distress HEENT: Pupils equal/reactive; visual bearden full now; no temporal tenderness Cardiac: RRR, no murmurs Resp: CTAB Abd: Soft, NT/ND Ext: No edema Neuro: Alert, oriented ?3, Cranial nerves II?XII intact,Strength 5/5 throughout, Sensation intact, No drift, no extinction, Coordination intact, NIHSS = 0. Discharge Plan Plan Patient Disposition: HOME (Self Care) Care Plan Goals: Discharge instructions: -Start Aspirin 81 mg and Plavix 75 mg daily for 21 days, then stop aspirin and switch to Plavix only indefinitely. -Start Atorvastatin 40 mg daily. -Follow up with neurology in 1-2 weeks. -Continue regular diet; avoid heavy lifting and strenuous activity until cleared by neurology. -Contact PCP for medication refills and routine care follow-up. -Resume home medications for blood pressure, pain, and chronic conditions as prescribed. -Emergency: Go to the ER immediately if you experience new or sudden neurological symptoms. Prescriptions/Referrals Prescriptions/Med Rec: New aspirin 81 mg capsule 81 mg PO QDAY Qty: 21 0RF clopidogrel [Plavix] 75 mg tablet 75 mg PO QDAY Qty: 30 0RF atorvastatin [Lipitor] 40 mg tablet 40 mg PO QDAY Qty: 30 0RF Continued alendronate [Fosamax] 70 mg Tablet 70 mg PO QWEEK Qty: 0 omeprazole 20 MG capsule,delayed release(DR/EC) 20 mg PO QDAY Qty: 0 amlodipine 10 mg Tablet 10 mg PO QDAY hydrocodone-acetaminophen [Galt] 5-325 mg tablet 1 tab PO QID MDD 4 PRN (Reason: pain) Qty: 30 0RF furosemide 20 mg tablet 20 mg PO DAILY oxybutynin chloride 5 mg tablet 5 mg PO Q8H PRN (Reason: bladder spasms) ibuprofen [IBU] 800 mg tablet 800 mg PO Q8H PRN (Reason: pain) omega 0-gfc-xvj-fish oil [Fish Oil] 1,200 (144-216) mg capsule 1 cap PO QDAY calcium carbonate-vitamin D3 600 mg-5 mcg (200 unit) tablet 1 tab PO QDAY estradiol 0.01 % (0.1 mg/gram) cream See Rx Instructions .ROUTE .COMPLEX Rx Instructions: 0.01%; 1/4 application twice a week nitroglycerin 0.4 mg tablet, sublingual 0.4 mg BUCCAL Q5MIN PRN (Reason: chest pain) Referrals: No Primary/Family,Physician [Primary Care Provider] Patient/Caregiver Discharge Instructions Education Materials: Discharge Instructions for Stroke Print Language: Azeri Stand Alone Forms: [employer] Award Info., Patient Portal Info Letter Discharge Order Discharge Orders: Discharge (Routine); Ordered 10/25/25 Ordered By: Johnnie Alanis Quality Discharge Quality Measures VTE therapy
== END 2025-10-25 18:30 | disposition home or self-care (01) ==
LOC: SERX 15:22 → SERHOLD 17:04 → S2NX 10-25 06:03 → SERHOLD 10-26 06:25 → S2NX 10-26 06:26
PROVIDERS: Admitting Provider Internal Medicine; Emergency Provider Emergency Medicine; Visit Provider Internal Medicine
DX: H53.122 Transient visual loss, left eye (principal); E78.5 Hyperlipidemia, unspecified; I10 Essential (primary) hypertension; M32.9 Systemic lupus erythematosus, unspecified; K21.9 Gastro-esophageal reflux disease without esophagitis; G89.29 Other chronic pain; G47.33 Obstructive sleep apnea (adult) (pediatric); M19.90 Unspecified osteoarthritis, unspecified site; R39.15 Urgency of urination; M81.0 Age-related osteoporosis without current pathological fracture; Z90.49 Acquired absence of other specified parts of digestive tract
CPT/HCPCS: 36415; 70450; 70496; 70498; 70553; 71045; 80053; 80061; 80307; 81001; 83036; 83735; 83880; 84100; 84443; 84484; 85025; 85610; 85652; 85730; 86140; 92610; 93005; 93306; 94660; 96372; 97161; 99284; A4649; A9577; G0378; J1650; Q9967; A9270